=== PATIENT | male | born 1940 | race Caucasian/White ===

== ENCOUNTER 2019-09-27 13:49 | Inpatient (IN) | payer BC, MEDICARE, OTHER ==
[~2019-09-27] VITALS: Ht 188 cm; Wt 72.6 kg
--- NOTE | 2019-09-27 14:08 | NUR ---
PT IS A/OX4, PRESENTS TO THE ER C/O RUE PAIN. PT STATES HE HAD A GROUND LEVEL FALL 2 DAYS AGO, DENIES HEAD INJURY/LOC. RUE PAIN IS PROVOKED UPON MOVEMENT/PALPATION, ACHING IN QUALITY, DOES NOT RADIATE, 7/10, CONSTANT. VSS. PT DENIES C/P, SOB, N/V/D, DIZZINESS, HEADACHE.
[2019-09-27] MEDS ORDERED: SULFAMETH/TRIMETH 800/160 MG TABLET PO ONE (14:15)
[2019-09-27] MEDS ORDERED: MORPHINE SULFATE 4 MG/1 ML DISP.SYRIN IM ONE (14:15)
[2019-09-27] MEDS ORDERED: ONDANSETRON 4 MG/2 ML VIAL IM ONE (14:15)
[2019-09-27] MEDS ORDERED: SULFAMETH/TRIMETH 800/160 MG TABLET ONE (14:15)
[2019-09-27] MEDS ORDERED: NEOMY/BACITRA/POLYMYXIN B OINT UD PACKET TP ONE ×3 (14:15→15:30)
[2019-09-27] MEDS ORDERED: MORPHINE SULFATE 4 MG/1 ML DISP.SYRIN ONE (14:15)
[2019-09-27] MEDS ORDERED: ONDANSETRON 4 MG/2 ML VIAL ONE (14:15)
[2019-09-27 15:00] LABS: BASOPHILS # (AUTO) 0.1 K/uL (0.0-8.0); BASOPHILS % (AUTO) 0.6 % (0.0-2.0); EOSINOPHILS # (AUTO) 0.1 K/uL (0.0-0.7); EOSINOPHILS % (AUTO) 0.4 % (0.0-7.0); HEMATOCRIT 37.4 % (36.7-47.1); HEMOGLOBIN 12.5 g/dL (12.5-16.3); LYMPHOCYTES # (AUTO) 1.2 K/uL (20.0-40.0); LYMPHOCYTES % (AUTO) 8.3 % (20.5-51.5); MEAN CORPUSCULAR HEMOGLOBIN 32.5 uug (23.8-33.4); MEAN CORPUSCULAR HGB CONC 33 g/dL (32.5-36.3); MEAN CORPUSCULAR VOLUME 97.3 fL (73.0-96.2); MONOCYTES % (AUTO) 7.4 % (0.0-11.0); NEUTROPHILS # (AUTO) 11.6 K/uL (1.8-8.9); NEUTROPHILS % (AUTO) 83.3 % (38.5-71.5); PLATELET COUNT (AUTO) 179 K/uL (152-348); RED BLOOD CELL COUNT(AUTO) 3.84 MIL/uL (4.06-5.63)
[2019-09-27 15:09] LABS: CREATININE 0.9 mg/dL (0.6-1.3); POTASSIUM 4.1 mmol/L (3.5-5.1)
[2019-09-27 15:15] LABS: BILIRUBIN,DIRECT 0.2 mg/dL (0.0-0.2); TOTAL PROTEIN, SERUM 6.3 g/dL (6.4-8.2)
[2019-09-27 15:18] LABS: BAND % (MANUAL) 4 % (0-10); LYMPHOCYTES % (MANUAL) 10 % (20-40); MONOCYTES % (MANUAL) 6 % (2-10); NEUTROPHILS % (MANUAL) 80 % (42-75)
--- NOTE | 2019-09-27 16:38 | NUR ---
ADMITTING REPORT GIVEN TO ROSY NAVARRO.
--- NOTE | 2019-09-27 17:00 | NUR ---
PT TRANSFERED TO FLOOR INSTABLE CONDITION. PT FOOD TRAY WAS SENT WITH PT. PT REMAINED CALM AND COMFORTABLE THE WHOLE ER STAY.
--- NOTE | 2019-09-27 19:00 | NUR ---
Pt. resting in bed. Pt. denies pain/ discomfort. IV in L forearm 20 gauge intact patent saline lock. Safety measures in place. call light within reach. Asked Dr. Holt for admitting orders. No new orders yet. Will endorse to PM nurse
[2019-09-27] MEDS ORDERED: ONDANSETRON 4 MG/2 ML VIAL IV PRN (19:45)
[2019-09-27] MEDS ORDERED: Z GUARD REMEDY PASTE 57 GM TUBE TOP PRN (19:45)
[2019-09-27] MEDS ORDERED: MAGNESIUM HYDROXIDE 30 ML LIQUID UDC PO PRN (19:45)
[2019-09-27] MEDS ORDERED: ACETAMINOPHEN 325 MG TABLET PO PRN (19:45)
[2019-09-27 20:00] VITALS: BP 120/59
--- NOTE | 2019-09-27 20:00 | NUR ---
Patient received into care, laying in bed, watching television. Patient is alert/oriented x3 and has no complaints of pain or discomfort at this time. Right arm is secured in sling. All safety and fall precaution measures are in place. Call light and personal items are within reach at all times. Will continue to monitor and assess.
[2019-09-27] MEDS: IV D5 1/2 NS 1000 ML 1,000 ML IV PRN (21:26)
[2019-09-27] MEDS: HYDROCODONE/APAP 5-325MG TABLET PO PRN (21:28)
[2019-09-28] MEDS: ZOLPIDEM 5 MG TABLET PO PRN (00:13)
[2019-09-28] MEDS: MORPHINE SULFATE 4 MG/1 ML DISP.SYRIN IV PRN ×3 (01:31→20:24)
[2019-09-28 04:00] VITALS: BP 157/75
--- NOTE | 2019-09-28 06:00 | NUR ---
Patient slept throughout night with complaints of pain addressed with prescribed analgesics. All nursing needs met promptly and patient is warm, dry, and comfortable. Safety and fall precaution measures remain in place. Call light and personal items remain within reach at all times.
[2019-09-28 06:09] LABS: BASOPHILS % (AUTO) 0.3 % (0.0-2.0); EOSINOPHILS # (AUTO) 0.1 K/uL (0.0-0.7); EOSINOPHILS % (AUTO) 1.3 % (0.0-7.0); HEMATOCRIT 36.6 % (36.7-47.1); HEMOGLOBIN 12.5 g/dL (12.5-16.3); LYMPHOCYTES # (AUTO) 1.2 K/uL (20.0-40.0); LYMPHOCYTES % (AUTO) 11.8 % (20.5-51.5); MEAN CORPUSCULAR HGB CONC 34 g/dL (32.5-36.3); MEAN CORPUSCULAR VOLUME 96.7 fL (73.0-96.2); MONOCYTES % (AUTO) 9.7 % (0.0-11.0); NEUTROPHILS # (AUTO) 7.6 K/uL (1.8-8.9); NEUTROPHILS % (AUTO) 76.9 % (38.5-71.5); PLATELET COUNT (AUTO) 179 K/uL (152-348); RED BLOOD CELL COUNT(AUTO) 3.79 MIL/uL (4.06-5.63); WHITE BLOOD COUNT (AUTO) 9.9 K/uL (3.6-10.2)
[2019-09-28 06:22] LABS: CREATININE 0.9 mg/dL (0.6-1.3); MAGNESIUM 2.2 mg/dL (1.8-2.4); PHOSPHOROUS 3.1 mg/dL (2.5-4.9); POTASSIUM 3.9 mmol/L (3.5-5.1)
[2019-09-28 06:30] LABS: THYROID STIMULATING HORMONE 1.274 mIU/mL (0.358-3.740)
[2019-09-28] MEDS: PANTOPRAZOLE SODIUM 40 MG TABLET.DR PO SCH (06:39)
[2019-09-28] MEDS: IV D5 1/2 NS 1000 ML 1,000 ML IV PRN (10:14)
[2019-09-28 11:18] VITALS: BP 155/80
--- NOTE | 2019-09-28 13:48 | NUR ---
WOUND CARE CONSULT: PT PRESENTS WITH RT UPPER EXTREMITY IN SLING WITH DRESSING IN PLACE. PER POWDER CUTTING OPERATOR, DRESSING NOT TO BE REMOVED TIL PT SEEN BY ORTHO SURGEON. PT IS CONTINENT AND INDEPENDENT WITH BED MOBILITY. WILL SEE PRN.
[2019-09-28] MEDS: HYDROCODONE/APAP 5-325MG TABLET PO PRN (15:27)
[2019-09-28 16:19] VITALS: BP 156/89
--- NOTE | 2019-09-28 19:30 | NUR ---
Received patient awake and alert in bed. Patient is AOx3. No signs of acute distress noted. Complains of pain to the right arm. No SOB. IVF running on the left forearm. Patient noted with multiple bruises to BUE s/p fall. Sling to the right arm is intact. Patient also has dressing intact, noted with skin tears to the right upper arm with bleeding and morning nurse stated another skin tear on the forearm, nurse just changed dressing, will change again in AM. Safety measures initiated. Bed is low and locked, call light within reach. Will continue to monitor.
[2019-09-28 20:08] VITALS: BP 142/79
[2019-09-29] MEDS: IV D5 1/2 NS 1000 ML 1,000 ML IV PRN ×3 (03:30→15:32)
[2019-09-29 05:19] VITALS: BP 147/93
[2019-09-29 05:58] LABS: BASOPHILS % (AUTO) 0.4 % (0.0-2.0); EOSINOPHILS # (AUTO) 0.1 K/uL (0.0-0.7); EOSINOPHILS % (AUTO) 0.9 % (0.0-7.0); HEMATOCRIT 36.3 % (36.7-47.1); HEMOGLOBIN 12.3 g/dL (12.5-16.3); LYMPHOCYTES # (AUTO) 0.8 K/uL (20.0-40.0); LYMPHOCYTES % (AUTO) 7.2 % (20.5-51.5); MEAN CORPUSCULAR HEMOGLOBIN 32.8 uug (23.8-33.4); MEAN CORPUSCULAR HGB CONC 34 g/dL (32.5-36.3); MEAN CORPUSCULAR VOLUME 96.8 fL (73.0-96.2); MONOCYTES # (AUTO) 1.1 K/uL (2.0-10.0); MONOCYTES % (AUTO) 10.7 % (0.0-11.0); NEUTROPHILS # (AUTO) 8.7 K/uL (1.8-8.9); NEUTROPHILS % (AUTO) 80.8 % (38.5-71.5); PLATELET COUNT (AUTO) 199 K/uL (152-348); RED BLOOD CELL COUNT(AUTO) 3.75 MIL/uL (4.06-5.63); WHITE BLOOD COUNT (AUTO) 10.8 K/uL (3.6-10.2)
[2019-09-29] MEDS: PANTOPRAZOLE SODIUM 40 MG TABLET.DR PO SCH (06:13)
[2019-09-29] MEDS: MORPHINE SULFATE 4 MG/1 ML DISP.SYRIN IV PRN ×2 (06:17→17:07)
[2019-09-29 06:19] LABS: CREATININE 0.8 mg/dL (0.6-1.3); MAGNESIUM 1.7 mg/dL (1.8-2.4); PHOSPHOROUS 2.9 mg/dL (2.5-4.9); POTASSIUM 3.8 mmol/L (3.5-5.1)
--- NOTE | 2019-09-29 07:01 | NUR ---
Patient slept well throughout shift, morphine given x2. Dressing to the right arm was changed. Sling is intact. IVF running on the left forearm, no s/s of infection or infiltration noted. All needs met. Safety measures given. Will endorse to next shift
[2019-09-29 11:22] VITALS: BP 141/73
[2019-09-29] MEDS: HYDROCODONE/APAP 5-325MG TABLET PO PRN ×2 (11:32→23:04)
[2019-09-29 15:11] VITALS: BP 147/73
[2019-09-29] MEDS: MAGNESIUM SULFATE/D5W 100 ML IV SCH ×2 (15:32→16:41)
--- NOTE | 2019-09-29 19:30 | NUR ---
Received patient awake and alert in bed, no signs of acute distress noted. Daughter is at bedside. Sling and dressing to the right upper arm is intact. IVF running on the left forearm, no s/s of infection or infiltration noted. Safety measures initiated. Bed is low and locked, call light within reach. Will continue to monitor.
[2019-09-29 20:16] VITALS: BP 155/78
[2019-09-29] MEDS: ZOLPIDEM 5 MG TABLET PO PRN (22:15)
[2019-09-30 05:26] VITALS: BP 149/88
[2019-09-30] MEDS: PANTOPRAZOLE SODIUM 40 MG TABLET.DR PO SCH ×2 (06:09→08:38)
[2019-09-30 06:49] LABS: BASOPHILS % (AUTO) 0.4 % (0.0-2.0); EOSINOPHILS # (AUTO) 0.1 K/uL (0.0-0.7); EOSINOPHILS % (AUTO) 0.7 % (0.0-7.0); HEMATOCRIT 35.8 % (36.7-47.1); HEMOGLOBIN 11.9 g/dL (12.5-16.3); LYMPHOCYTES # (AUTO) 0.9 K/uL (20.0-40.0); LYMPHOCYTES % (AUTO) 8.8 % (20.5-51.5); MEAN CORPUSCULAR HEMOGLOBIN 32.6 uug (23.8-33.4); MEAN CORPUSCULAR HGB CONC 33 g/dL (32.5-36.3); MONOCYTES # (AUTO) 1.2 K/uL (2.0-10.0); MONOCYTES % (AUTO) 11.2 % (0.0-11.0); NEUTROPHILS # (AUTO) 8.4 K/uL (1.8-8.9); NEUTROPHILS % (AUTO) 78.9 % (38.5-71.5); PLATELET COUNT (AUTO) 202 K/uL (152-348); RED BLOOD CELL COUNT(AUTO) 3.66 MIL/uL (4.06-5.63); WHITE BLOOD COUNT (AUTO) 10.6 K/uL (3.6-10.2)
--- NOTE | 2019-09-30 06:50 | NUR ---
Patient slept well throughout the night, pain medication given x2. Dressing change done, slight bleeding noted. Will follow up with Dr. Holt about med recon.
[2019-09-30] MEDS: HYDROCODONE/APAP 5-325MG TABLET PO PRN ×2 (06:53→20:53)
[2019-09-30 07:03] LABS: CREATININE 0.6 mg/dL (0.6-1.3); MAGNESIUM 2.2 mg/dL (1.8-2.4); PHOSPHOROUS 3.4 mg/dL (2.5-4.9); POTASSIUM 3.8 mmol/L (3.5-5.1)
[2019-09-30 08:21] LABS: *BILIRUBIN,URIN NEGATIVE (NEGATIVE); *BLOOD, URINE NEGATIVE (NEGATIVE); *CLARITY,URINE CLEAR (CLEAR); *COLOR,URINE LIGHT YELLOW (YELLOW); *KETONES,URINE NEGATIVE (NEGATIVE); LEUKOCYTE ESTERASE ,URINE NEGATIVE (NEGATIVE); NITRITE, URINE NEGATIVE (NEGATIVE); PH,URINE 5.5 (5.0-8.0); UGLUCOSE NEGATIVE (NEGATIVE)
[2019-09-30 08:36] LABS: BACTERIA,URINE NONE SEEN /HPF (NONE SEEN); RBC,URINE 0-3 /HPF (0-3); SQUAMOUS EPITHELIAL CELL,UR FEW /HPF (NONE SEEN); WBC,URINE 0-3 /HPF (0-3)
[2019-09-30] MEDS: IV D5 1/2 NS 1000 ML 1,000 ML IV PRN ×2 (08:39→23:10)
[2019-09-30] MEDS: MORPHINE SULFATE 4 MG/1 ML DISP.SYRIN IV PRN ×2 (09:07→15:38)
--- NOTE | 2019-09-30 09:35 | NUR ---
alert, oriented, a bit of [place]. When first met this am, said NORCO given at 0700 by previous night nurse, relieved pain. When assisted with adl, now claimed " so much in pain, want some med through the iv, worked better. MSO4 4mg ivp given and ice pad on right arm applied per patient's request.
[2019-09-30] MEDS: CLONAZEPAM 0.5 MG TABLET PO PRN (10:32)
[2019-09-30] MEDS: CARVEDILOL 6.25 MG TABLET PO SCH ×2 (10:32→20:53)
[2019-09-30] MEDS: RAMIPRIL 5 MG CAPSULE PO SCH (10:41)
[2019-09-30 11:18] VITALS: BP 140/71
[2019-09-30] MEDS: FLUOXETINE HCL 20 MG CAPSULE PO SCH (11:36)
--- NOTE | 2019-09-30 15:47 | NUR ---
first mso4 4mg ivp given at about 0900 this morning, asleep for a good 3-4 hrs, woke up only to eat. again requested another dose of mso4, 4mg ivp , given, pain scaled 7/10, patient alert, oriented, and very appropriate.. will continue to monitor his pain, if possible, will medicate in between with norco to relieve the discomfor on right arm
[2019-09-30 15:49] VITALS: BP 141/72
[2019-09-30] MEDS: TRELEGY ELLIPTA INHALER IH SCH (17:59)
--- NOTE | 2019-09-30 18:56 | NUR ---
Report given from fellow nurse around 17:20 ; patient requesting at home medication telergy due to sob and hx of copd yet with a saturation 96% ; patient daughter expressed medication in pharmacy down stares ; ordered for pharmacy to dose medication ; pharmacy ordered and placed in emr. Patient otherwise comfortable and no signs of distress and stable vital signs. Report given to oncoming nurse.
[2019-09-30 20:39] VITALS: BP 134/77
[2019-09-30] MEDS: ROSUVASTATIN 10MG PO SCH (20:52)
[2019-09-30] MEDS ORDERED: ATORVASTATIN 20 MG TABLET PO SCH (21:00)
[2019-09-30] MEDS ORDERED: Medication Not On Formulary EA (Rosuvastatin Calcium (Crestor) 10 MG) PO SCH (21:00)
[2019-09-30] MEDS: ZOLPIDEM 5 MG TABLET PO PRN (23:10)
[2019-10-01 05:44] VITALS: BP 155/68
--- NOTE | 2019-10-01 05:44 | NUR ---
Patient slept well. No SOB noted. No complaints of pain at this time. Sling on R arm kept in place. IV access on LFA intact and patent w/ IVF infusing. All needs attended. Will endorse accordingly
[2019-10-01 06:29] LABS: CREATININE 0.7 mg/dL (0.6-1.3); MAGNESIUM 1.6 mg/dL (1.8-2.4); PHOSPHOROUS 2.8 mg/dL (2.5-4.9); POTASSIUM 3.8 mmol/L (3.5-5.1)
[2019-10-01 06:46] LABS: BASOPHILS % (AUTO) 0.3 % (0.0-2.0); EOSINOPHILS # (AUTO) 0.1 K/uL (0.0-0.7); HEMATOCRIT 33.4 % (36.7-47.1); HEMOGLOBIN 11.1 g/dL (12.5-16.3); LYMPHOCYTES # (AUTO) 0.6 K/uL (20.0-40.0); LYMPHOCYTES % (AUTO) 6.5 % (20.5-51.5); MEAN CORPUSCULAR HEMOGLOBIN 32.5 uug (23.8-33.4); MEAN CORPUSCULAR HGB CONC 33 g/dL (32.5-36.3); MONOCYTES # (AUTO) 0.6 K/uL (2.0-10.0); MONOCYTES % (AUTO) 6.6 % (0.0-11.0); NEUTROPHILS # (AUTO) 7.7 K/uL (1.8-8.9); NEUTROPHILS % (AUTO) 85.6 % (38.5-71.5); PLATELET COUNT (AUTO) 199 K/uL (152-348); RED BLOOD CELL COUNT(AUTO) 3.41 MIL/uL (4.06-5.63)
--- NOTE | 2019-10-01 07:30 | NUR ---
Patient calm and comfortable upon assessment patient with no signs of distress; patient will continue to be monitored.
[2019-10-01] MEDS ORDERED: FLUOXETINE HCL 20 MG CAPSULE PO SCH (09:00)
[2019-10-01] MEDS ORDERED: predniSONE 20 MG TABLET PO SCH (09:00)
[2019-10-01] MEDS ORDERED: METHOTREXATE SODIUM 2.5 MG TABLET PO SCH (09:00)
[2019-10-01] MEDS ORDERED: FOLIC ACID 0.4 MG TABLET PO SCH (09:00)
[2019-10-01] MEDS: predniSONE 10 MG TABLET PO SCH (09:18)
[2019-10-01] MEDS: FLUOXETINE HCL 20 MG CAPSULE PO SCH (09:19)
[2019-10-01] MEDS: FOLIC ACID 1 MG TABLET PO SCH (09:19)
[2019-10-01] MEDS: CARVEDILOL 6.25 MG TABLET PO SCH ×2 (09:21→20:14)
[2019-10-01] MEDS: TRELEGY ELLIPTA INHALER IH SCH (09:22)
[2019-10-01] MEDS: RAMIPRIL 5 MG CAPSULE PO SCH (09:22)
[2019-10-01] MEDS: MAGNESIUM SULFATE/D5W 100 ML IV SCH ×2 (11:42→13:09)
[2019-10-01] MEDS: HYDROCODONE/APAP 5-325MG TABLET PO PRN ×2 (12:32→20:15)
[2019-10-01 13:23] VITALS: BP 111/67
[2019-10-01] MEDS: MORPHINE SULFATE 4 MG/1 ML DISP.SYRIN IV PRN (18:33)
[2019-10-01] MEDS: IV D5 1/2 NS 1000 ML 1,000 ML IV PRN (18:34)
--- NOTE | 2019-10-01 19:03 | NUR ---
Patient calm and comfortable through out shift with no signs of distress; patient medication compliant ; patient had bm today ; patient requested prn medication during shift; wound dressing changed.
--- NOTE | 2019-10-01 20:00 | NUR ---
RECEIVED PATIENT AWAKE IN BED. A/O X4. VERY PLEASANT WHEN APPROACHED. VSS. IVF INFUSING WELL TO LEFT FA #20 GAUGE. RIGHT ARM NOTED IN SLING. ICE APPLIED FOR COMFORT. NO RESP. DISTRESS NOTED. BED ALARM ON. CALL LIGHT IN REACH. ALL NEEDS ATTENDED. WILL CONTINUE TO MONITOR AND ASSESS.
[2019-10-01 20:10] VITALS: BP 127/74
[2019-10-01] MEDS: ROSUVASTATIN 10MG PO SCH (20:15)
[2019-10-01] MEDS: ZOLPIDEM 5 MG TABLET PO PRN (23:56)
[2019-10-02] MEDS: CLONAZEPAM 0.5 MG TABLET PO PRN (01:15)
[2019-10-02] MEDS: HYDROCODONE/APAP 5-325MG TABLET PO PRN ×3 (01:24→20:17)
[2019-10-02 04:33] VITALS: BP 134/79
[2019-10-02] MEDS: PANTOPRAZOLE SODIUM 40 MG TABLET.DR PO SCH (06:26)
--- NOTE | 2019-10-02 06:51 | NUR ---
PATIENT ASLEEP IN BED. DRESSING NOTED TO RIGHT ARM, LEAKING. DRESSING CHANGE 2X. PATIENT ASLEEP,EASILY AROUSABLE, BUT DOES NOT WANT DRESSING CHANGED AT THIS TIME. WILL ENDORSE TO AM SHIFT. VSS. SLEPT AT SMALL INTERVALS. IVF INFUSING WELL ORDERED. BED ALARM ON. RIGHT ARM ELEVATED ON PILLOW. ALL NEEDS ATTENDED. WILL CONTINUE TO MONITOR AND ASSESS.
--- NOTE | 2019-10-02 07:30 | NUR ---
Patient calm and comfortable with no signs of distress; patient will continue to be monitored through out shift.
[2019-10-02] MEDS: predniSONE 10 MG TABLET PO SCH (09:04)
[2019-10-02] MEDS: FOLIC ACID 1 MG TABLET PO SCH (09:04)
[2019-10-02] MEDS: FLUOXETINE HCL 20 MG CAPSULE PO SCH (09:04)
[2019-10-02] MEDS: RAMIPRIL 5 MG CAPSULE PO SCH (09:06)
[2019-10-02] MEDS: TRELEGY ELLIPTA INHALER IH SCH (09:07)
[2019-10-02] MEDS: CARVEDILOL 6.25 MG TABLET PO SCH ×2 (09:07→20:30)
[2019-10-02] MEDS: IV D5 1/2 NS 1000 ML 1,000 ML IV PRN (12:01)
[2019-10-02] MEDS ORDERED: hydrALAZINE HCL 25 MG TABLET PO PRN (12:30)
[2019-10-02 13:41] VITALS: BP 123/66
[2019-10-02 15:48] LABS: BASOPHILS % (AUTO) 0.5 % (0.0-2.0); EOSINOPHILS % (AUTO) 0.1 % (0.0-7.0); HEMATOCRIT 34.8 % (36.7-47.1); HEMOGLOBIN 11.5 g/dL (12.5-16.3); LYMPHOCYTES # (AUTO) 0.4 K/uL (20.0-40.0); LYMPHOCYTES % (AUTO) 4.5 % (20.5-51.5); MEAN CORPUSCULAR HEMOGLOBIN 32.2 uug (23.8-33.4); MEAN CORPUSCULAR HGB CONC 33 g/dL (32.5-36.3); MEAN CORPUSCULAR VOLUME 97.3 fL (73.0-96.2); MONOCYTES # (AUTO) 0.5 K/uL (2.0-10.0); NEUTROPHILS # (AUTO) 8.3 K/uL (1.8-8.9); NEUTROPHILS % (AUTO) 89.9 % (38.5-71.5); PLATELET COUNT (AUTO) 268 K/uL (152-348); RED BLOOD CELL COUNT(AUTO) 3.58 MIL/uL (4.06-5.63); WHITE BLOOD COUNT (AUTO) 9.2 K/uL (3.6-10.2)
[2019-10-02 16:03] VITALS: BP 112/62
[2019-10-02 16:08] LABS: BILIRUBIN,TOTAL 0.7 mg/dL (0.2-1.0); CREATININE 0.8 mg/dL (0.6-1.3); TOTAL PROTEIN, SERUM 6.1 g/dL (6.4-8.2)
[2019-10-02 16:15] LABS: POTASSIUM 4.8 mmol/L (3.5-5.1)
--- NOTE | 2019-10-02 19:05 | NUR ---
Patient calm and comfortable through out shift ;patient with no signs of distress; patient suppose to be discharged but decided he wants a second opinion for right arm fracture ;attending agreed. patient with stable vital signs. Report given to oncoming nurse.
[2019-10-02 20:00] VITALS: BP 141/82
--- NOTE | 2019-10-02 20:00 | NUR ---
Patient received into care, sitting up in bed, resting comfortably. Patient is alert/oriented x3 and is requesting pain medication. Personal items and call light are within reach. Safety and fall precaution measures are in place. Well continue to monitor and assess.
[2019-10-02] MEDS: MORPHINE SULFATE 4 MG/1 ML DISP.SYRIN IV PRN (20:08)
[2019-10-02] MEDS: ROSUVASTATIN 10MG PO SCH (20:38)
[2019-10-02] MEDS: ZOLPIDEM 5 MG TABLET PO PRN (23:04)
[2019-10-03] MEDS: IV D5 1/2 NS 1000 ML 1,000 ML IV PRN ×2 (04:19→17:54)
[2019-10-03 05:03] VITALS: BP 126/52
[2019-10-03] MEDS: MORPHINE SULFATE 4 MG/1 ML DISP.SYRIN IV PRN (05:23)
[2019-10-03] MEDS: PANTOPRAZOLE SODIUM 40 MG TABLET.DR PO SCH (06:00)
--- NOTE | 2019-10-03 06:00 | NUR ---
Patient slept intermittently throughout night with complaints of pain addressed with prescribed analgesics. All prescribed medications provided as ordered and tolerated well, with no adverse side effects verbalized by patient or noted/observed by nurse. Wound care for right arm was performed. All nursing care met promptly and patient is warm, dry and comfortable. All safety and fall precaution measures remain in place. Call light and personal items are within reach at all times.
--- NOTE | 2019-10-03 08:00 | NUR ---
Received pt. resting in bed alert oriented x4. Pt. is on 2 L NC. IV in L forearm 20 guage intact patent running prescribed fluids. Pt. has R shoulder sling. Spoke to and arranging 2nd ortho to evaluate pt. for 2nd opinion. Spoke to daughter and updated her on plan of care.
[2019-10-03] MEDS: FLUOXETINE HCL 20 MG CAPSULE PO SCH (10:16)
[2019-10-03] MEDS: predniSONE 10 MG TABLET PO SCH (10:16)
[2019-10-03] MEDS: CARVEDILOL 6.25 MG TABLET PO SCH ×2 (10:16→21:57)
[2019-10-03] MEDS: FOLIC ACID 1 MG TABLET PO SCH (10:16)
[2019-10-03] MEDS: RAMIPRIL 5 MG CAPSULE PO SCH (10:17)
[2019-10-03] MEDS: HYDROCODONE/APAP 5-325MG TABLET PO PRN ×2 (10:26→14:45)
[2019-10-03] MEDS: TRELEGY ELLIPTA INHALER IH SCH (10:26)
[2019-10-03 11:23] VITALS: BP 126/70
[2019-10-03 15:55] VITALS: BP 120/70
--- NOTE | 2019-10-03 20:00 | NUR ---
PATIENT RECEIVED INTO CARE, SITTING UP IN BED, RESTING COMFORTABLY. PATIENT HAS NO COMPLAINTS OF PAIN OR DISCOMFORT AT THIS TIME. SAFETY AND FALL PRECAUTION MEASURES ARE IN PLACE. CALL LIGHT AND PERSONAL ITEMS ARE WITHIN REACH. WILL CONTINUE TO MONITOR AND ASSESS.
[2019-10-03 20:58] VITALS: BP 141/66
[2019-10-03] MEDS: ROSUVASTATIN 10MG PO SCH (21:52)
[2019-10-04 04:10] VITALS: BP 158/87
[2019-10-04] MEDS: MORPHINE SULFATE 4 MG/1 ML DISP.SYRIN IV PRN (05:00)
--- NOTE | 2019-10-04 05:00 | NUR ---
IV in left forearm infiltrated. IV cath removed, ice applied to infiltrated site. New IV site placed in left AC 20g. IV site patent and intact, IV fluids resumed.
[2019-10-04] MEDS: IV D5 1/2 NS 1000 ML 1,000 ML IV PRN (05:04)
--- NOTE | 2019-10-04 05:45 | NUR ---
New IV site reddened and edematous. IV cath removed from left AC, extremity elevated and ice applied. No new site started. Will endorse to AM shift.
[2019-10-04] MEDS: HYDROCODONE/APAP 5-325MG TABLET PO PRN ×3 (06:15→20:44)
[2019-10-04] MEDS: PANTOPRAZOLE SODIUM 40 MG TABLET.DR PO SCH (06:15)
--- NOTE | 2019-10-04 07:53 | NUR ---
Received pt. resting in bed alert oriented x4. Pt. is on 2 L NC. Pt. does not have an IV due to IV infiltrating last night. RN attempted twice to put in new IV without success. Pt. refuses IV at this time and wants to rest. Pt. has R shoulder sling. Awaiting 2nd recommendation from ortho surgeon. Safety measures in place. Call light within reach. Will continue to monitor pt.
[2019-10-04] MEDS: predniSONE 10 MG TABLET PO SCH (07:56)
[2019-10-04] MEDS: FLUOXETINE HCL 20 MG CAPSULE PO SCH (07:56)
[2019-10-04] MEDS: FOLIC ACID 1 MG TABLET PO SCH (07:56)
[2019-10-04] MEDS: CARVEDILOL 6.25 MG TABLET PO SCH ×2 (07:57→20:42)
[2019-10-04] MEDS: TRELEGY ELLIPTA INHALER IH SCH (07:57)
[2019-10-04] MEDS: RAMIPRIL 5 MG CAPSULE PO SCH (07:57)
[2019-10-04 11:00] VITALS: BP 109/55
[2019-10-04 15:00] VITALS: BP 127/61
--- NOTE | 2019-10-04 19:05 | NUR ---
aware of no IV site. No new orders. Pt. compliant with plan of care. PRN pain medication provided for pain
[2019-10-04 20:00] VITALS: BP 123/72
--- NOTE | 2019-10-04 20:00 | NUR ---
Patient received into care, sitting up in bed, watching television. Patient is alert/oriented x3 and is requesting pain medication related to right humeral fracture. Nurse asked patient if he would like prescribed norco and patient said yes. Safety and fall precaution measures are in place. Call light and personal items are within reach. Will continue to monitor and assess.
[2019-10-04] MEDS: ROSUVASTATIN 10MG PO SCH (21:28)
[2019-10-05 04:00] VITALS: BP 144/80
--- NOTE | 2019-10-05 06:00 | NUR ---
Patient slept comfortably throughout night with complaints of pain addressed with prescribed analgesics. All prescribed medications provided as ordered and tolerated well, with no adverse side effects verbalized by patient or noted/observed by nurse. Call light remains within reach at all times. Safety and fall precaution measures remain in place.
[2019-10-05] MEDS: PANTOPRAZOLE SODIUM 40 MG TABLET.DR PO SCH (06:05)
[2019-10-05] MEDS: HYDROCODONE/APAP 5-325MG TABLET PO PRN ×3 (06:05→22:46)
[2019-10-05 06:35] LABS: BASOPHILS % (AUTO) 0.4 % (0.0-2.0); EOSINOPHILS # (AUTO) 0.1 K/uL (0.0-0.7); EOSINOPHILS % (AUTO) 0.7 % (0.0-7.0); HEMATOCRIT 35.8 % (36.7-47.1); HEMOGLOBIN 11.7 g/dL (12.5-16.3); LYMPHOCYTES # (AUTO) 1.3 K/uL (20.0-40.0); LYMPHOCYTES % (AUTO) 13.9 % (20.5-51.5); MEAN CORPUSCULAR HEMOGLOBIN 31.9 uug (23.8-33.4); MEAN CORPUSCULAR HGB CONC 33 g/dL (32.5-36.3); MEAN CORPUSCULAR VOLUME 97.5 fL (73.0-96.2); MONOCYTES # (AUTO) 1.1 K/uL (2.0-10.0); MONOCYTES % (AUTO) 11.9 % (0.0-11.0); NEUTROPHILS # (AUTO) 6.8 K/uL (1.8-8.9); NEUTROPHILS % (AUTO) 73.1 % (38.5-71.5); PLATELET COUNT (AUTO) 297 K/uL (152-348); RED BLOOD CELL COUNT(AUTO) 3.67 MIL/uL (4.06-5.63); WHITE BLOOD COUNT (AUTO) 9.3 K/uL (3.6-10.2)
[2019-10-05 06:57] LABS: BILIRUBIN,TOTAL 0.5 mg/dL (0.2-1.0); CREATININE 0.7 mg/dL (0.6-1.3); PHOSPHOROUS 3.9 mg/dL (2.5-4.9); TOTAL PROTEIN, SERUM 6.4 g/dL (6.4-8.2)
[2019-10-05] MEDS: FLUOXETINE HCL 20 MG CAPSULE PO SCH (08:10)
[2019-10-05] MEDS: FOLIC ACID 1 MG TABLET PO SCH (08:11)
[2019-10-05] MEDS: RAMIPRIL 5 MG CAPSULE PO SCH (08:11)
[2019-10-05] MEDS: predniSONE 10 MG TABLET PO SCH (08:11)
[2019-10-05] MEDS: CARVEDILOL 6.25 MG TABLET PO SCH ×2 (08:11→20:12)
[2019-10-05] MEDS: TRELEGY ELLIPTA INHALER IH SCH (08:17)
[2019-10-05 11:10] VITALS: BP 117/74
[2019-10-05 15:30] VITALS: BP 122/74
[2019-10-05] MEDS: MORPHINE SULFATE 4 MG/1 ML DISP.SYRIN IV PRN (17:04)
[2019-10-05] MEDS: ROSUVASTATIN 10MG PO SCH (20:16)
[2019-10-05 20:34] VITALS: BP 149/80
[2019-10-06] MEDS: MORPHINE SULFATE 4 MG/1 ML DISP.SYRIN IM PRN ×2 (03:45→10:17)
[2019-10-06 05:15] VITALS: BP 148/71
[2019-10-06] MEDS: PANTOPRAZOLE SODIUM 40 MG TABLET.DR PO SCH (06:03)
--- NOTE | 2019-10-06 07:20 | NUR ---
RECEIVED PATIENT IN BED, AOX4. DENIES PAIN OR SOB AT THIS TIME. PLAN FOR MIDLINE PLACEMENT. SAFETY AND FALL PREVENTION IN PLACE. CALL LIGHT IN REACH. BED IN LOW POSITION AND LOCKED. WILL REPORT TO FORK LIFT TRUCK OPERATOR. Addendum: 10/06/19 at 1849 by YOSELIN TOMPKINS RN WILL CONTINUE TO MONITOR THROUGHOUT THE SHIFT.
[2019-10-06] MEDS: FOLIC ACID 1 MG TABLET PO SCH (08:52)
[2019-10-06] MEDS: FLUOXETINE HCL 20 MG CAPSULE PO SCH (08:52)
[2019-10-06] MEDS ORDERED: METHOTREXATE SODIUM 2.5 MG TABLET PO SCH (09:00)
[2019-10-06] MEDS: CARVEDILOL 6.25 MG TABLET PO SCH ×2 (09:02→21:33)
[2019-10-06] MEDS: TRELEGY ELLIPTA INHALER IH SCH (09:03)
[2019-10-06] MEDS: predniSONE 10 MG TABLET PO SCH (09:04)
[2019-10-06] MEDS: RAMIPRIL 5 MG CAPSULE PO SCH (09:08)
--- NOTE | 2019-10-06 11:02 | NUR ---
dr. raul Stockton wanted to cancel the vit. B 12 lab for today.
[2019-10-06 11:57] VITALS: BP 111/69
[2019-10-06] MEDS: HYDROCODONE/APAP 5-325MG TABLET PO PRN ×2 (14:54→21:34)
[2019-10-06 16:09] VITALS: BP 121/74
--- NOTE | 2019-10-06 18:49 | NUR ---
PATIENT IN BED, AOX4. COMPLEINS OF RIGHT ARM PAIN, MEDICATIONS GIVEN ORDERED. MIDLINE INTACT AND FLUSHED. SAFETY AND FALL PREVENTION IN PLACE. CALL LIGHT IN REACH. BED IN LOW POSITION AND LOCKED. WILL REPORT TO TOP STEEP TENDER.
[2019-10-06 21:31] VITALS: BP 127/53
[2019-10-06] MEDS: ATORVASTATIN 20 MG TABLET PO SCH (21:33)
[2019-10-06] MEDS: ROSUVASTATIN 10MG PO SCH (21:35)
--- NOTE | 2019-10-07 05:57 | NUR ---
Pt slept well through the night with no issues, gave 1x dose of [place] last night and effective throughout shift.
[2019-10-07] MEDS: PANTOPRAZOLE SODIUM 40 MG TABLET.DR PO SCH (06:29)
[2019-10-07 06:52] LABS: BASOPHILS % (AUTO) 0.4 % (0.0-2.0); EOSINOPHILS # (AUTO) 0.1 K/uL (0.0-0.7); EOSINOPHILS % (AUTO) 0.8 % (0.0-7.0); HEMATOCRIT 35.6 % (36.7-47.1); HEMOGLOBIN 11.9 g/dL (12.5-16.3); LYMPHOCYTES # (AUTO) 1.3 K/uL (20.0-40.0); LYMPHOCYTES % (AUTO) 11.9 % (20.5-51.5); MEAN CORPUSCULAR HEMOGLOBIN 32.2 uug (23.8-33.4); MEAN CORPUSCULAR HGB CONC 34 g/dL (32.5-36.3); MEAN CORPUSCULAR VOLUME 96.2 fL (73.0-96.2); MONOCYTES # (AUTO) 1.2 K/uL (2.0-10.0); MONOCYTES % (AUTO) 10.6 % (0.0-11.0); NEUTROPHILS # (AUTO) 8.7 K/uL (1.8-8.9); NEUTROPHILS % (AUTO) 76.3 % (38.5-71.5); PLATELET COUNT (AUTO) 306 K/uL (152-348); WHITE BLOOD COUNT (AUTO) 11.3 K/uL (3.6-10.2)
[2019-10-07 07:06] LABS: CARBON DIOXIDE 31 mmol/L (21-32); CHLORIDE 102 mmol/L (98-107); CREATININE 0.6 mg/dL (0.6-1.3); GLUCOSE 85 mg/dL (74-106); PHOSPHOROUS 4.3 mg/dL (2.5-4.9); POTASSIUM 3.9 mmol/L (3.5-5.1); UREA NITROGEN, BLOOD 17 mg/dL (7-18)
[2019-10-07] MEDS: TRELEGY ELLIPTA INHALER IH SCH (08:06)
[2019-10-07] MEDS: RAMIPRIL 5 MG CAPSULE PO SCH (08:07)
[2019-10-07] MEDS: predniSONE 10 MG TABLET PO SCH (08:07)
[2019-10-07] MEDS: FLUOXETINE HCL 20 MG CAPSULE PO SCH (08:07)
[2019-10-07] MEDS: CARVEDILOL 6.25 MG TABLET PO SCH ×2 (08:07→20:04)
[2019-10-07] MEDS: FOLIC ACID 1 MG TABLET PO SCH (08:07)
[2019-10-07] MEDS: MORPHINE SULFATE 4 MG/1 ML DISP.SYRIN IM PRN ×4 (11:27→23:53)
[2019-10-07 11:47] VITALS: BP 115/64
[2019-10-07 16:03] VITALS: BP 114/50
[2019-10-07] MEDS: HYDROCODONE/APAP 5-325MG TABLET PO PRN (17:32)
[2019-10-07] MEDS: ROSUVASTATIN 10MG PO SCH (20:04)
[2019-10-07] MEDS: ATORVASTATIN 20 MG TABLET PO SCH (20:04)
[2019-10-07 20:20] VITALS: BP 121/79
[2019-10-08] MEDS: MORPHINE SULFATE 4 MG/1 ML DISP.SYRIN IM PRN (04:10)
[2019-10-08 04:59] VITALS: BP 119/56
[2019-10-08] MEDS: PANTOPRAZOLE SODIUM 40 MG TABLET.DR PO SCH (06:08)
[2019-10-08 06:37] LABS: BASOPHILS % (AUTO) 0.4 % (0.0-2.0); EOSINOPHILS # (AUTO) 0.1 K/uL (0.0-0.7); EOSINOPHILS % (AUTO) 0.7 % (0.0-7.0); HEMATOCRIT 35.7 % (36.7-47.1); HEMOGLOBIN 11.8 g/dL (12.5-16.3); LYMPHOCYTES # (AUTO) 1.1 K/uL (20.0-40.0); LYMPHOCYTES % (AUTO) 10.3 % (20.5-51.5); MEAN CORPUSCULAR HGB CONC 33 g/dL (32.5-36.3); MEAN CORPUSCULAR VOLUME 96.8 fL (73.0-96.2); MONOCYTES % (AUTO) 9.7 % (0.0-11.0); NEUTROPHILS # (AUTO) 8.5 K/uL (1.8-8.9); NEUTROPHILS % (AUTO) 78.9 % (38.5-71.5); PLATELET COUNT (AUTO) 313 K/uL (152-348); RED BLOOD CELL COUNT(AUTO) 3.69 MIL/uL (4.06-5.63); WHITE BLOOD COUNT (AUTO) 10.8 K/uL (3.6-10.2)
[2019-10-08 06:53] LABS: CREATININE 0.8 mg/dL (0.6-1.3); MAGNESIUM 1.8 mg/dL (1.8-2.4); PHOSPHOROUS 4.4 mg/dL (2.5-4.9); POTASSIUM 4.1 mmol/L (3.5-5.1)
--- NOTE | 2019-10-08 07:30 | NUR ---
Patient calm and comfortable with no signs of distress upon initial assessment ; patient will continue to be monitored.
[2019-10-08] MEDS: CARVEDILOL 6.25 MG TABLET PO SCH ×2 (08:18→20:24)
[2019-10-08] MEDS: RAMIPRIL 5 MG CAPSULE PO SCH (08:18)
[2019-10-08] MEDS: predniSONE 10 MG TABLET PO SCH (08:19)
[2019-10-08] MEDS: FOLIC ACID 1 MG TABLET PO SCH (08:19)
[2019-10-08] MEDS: FLUOXETINE HCL 20 MG CAPSULE PO SCH (08:19)
[2019-10-08] MEDS: HYDROCODONE/APAP 5-325MG TABLET PO PRN (08:19)
[2019-10-08] MEDS: TRELEGY ELLIPTA INHALER IH SCH (08:22)
[2019-10-08 11:51] VITALS: BP 134/80
[2019-10-08] MEDS: MORPHINE SULFATE 4 MG/1 ML DISP.SYRIN IV PRN ×2 (12:21→18:22)
[2019-10-08 16:20] VITALS: BP 116/67
--- NOTE | 2019-10-08 18:17 | NUR ---
PATIENT CALM AND COMFORTABLE THROUGH OUT SHIFT ; PATIENT SCHEDULED FOR SURGERY TOMORROW MORNING ; PATIENT WITH STABLE VITAL SIGNS THROUGH OUT SHIFT; PATIENT WITH NO SIGNS OF DISTRESS; PATIENT MEDICATION COMPLIANT ; PATIENT GIVEN PRN MEDICATION FOR PAIN.
--- NOTE | 2019-10-08 19:30 | NUR ---
RECEIVED PT AWAKE, ALERT AND ORIENTEDX3. PT IN NO ACUTE DISTRESS. IV INTACT. PT AWARE THAT HE WILL BE ON NPO ON MIDNIGHT, SAFETY AND COMFORT PROVIDED. WILL CONTINUE TO MONITOR.
[2019-10-08 20:00] VITALS: BP 126/65
[2019-10-08] MEDS: ATORVASTATIN 20 MG TABLET PO SCH (20:23)
[2019-10-08] MEDS: ROSUVASTATIN 10MG PO SCH (20:24)
[2019-10-08] MEDS: ZOLPIDEM 5 MG TABLET PO PRN (22:46)
[2019-10-09] MEDS: MORPHINE SULFATE 4 MG/1 ML DISP.SYRIN IV PRN ×4 (01:34→20:15)
[2019-10-09 05:04] VITALS: BP 129/65
[2019-10-09] MEDS: PANTOPRAZOLE SODIUM 40 MG TABLET.DR PO SCH (06:22)
--- NOTE | 2019-10-09 06:25 | NUR ---
PT SLEPT INTERMITTENTLY. PT IN NO ACUTE DISTRESS. IV INTACT. PRESCRIBED MEDICATION GIVEN AND PT TOLERATED IT WELL. PT GIVEN MORPHINE AT 0134H. PT TOLERATED IT WELL. SAFETY AND COMFORT PROVIDED. ALL NEEDS ARE MET. WILL ENDORSE TO INCOMING NURSE FOR CONTINUITY OF CARE.
[2019-10-09] MEDS ORDERED: POLYMYXIN B SULFATE 500,000 UNITS, BACITRACIN 50,000 UNITS, NORMAL SALINE 20 ML MC ONE ×3 (07:15)
--- NOTE | 2019-10-09 07:30 | NUR ---
Patient calm and comfortable with no signs of distress ;patient explained npo status and surgery at 9am; patient will continue to be monitored.
[2019-10-09] MEDS ORDERED: VANCOMYCIN 1000 MG VIAL ONE (07:32)
[2019-10-09] MEDS ORDERED: BACITRACIN ZINC OINT 15 GM TUBE ONE (07:32)
[2019-10-09] MEDS: FLUOXETINE HCL 20 MG CAPSULE PO SCH (08:33)
[2019-10-09] MEDS: FOLIC ACID 1 MG TABLET PO SCH (08:33)
[2019-10-09] MEDS: CARVEDILOL 6.25 MG TABLET PO SCH ×2 (08:34→20:14)
[2019-10-09] MEDS: predniSONE 10 MG TABLET PO SCH (08:34)
[2019-10-09] MEDS: TRELEGY ELLIPTA INHALER IH SCH (08:35)
[2019-10-09] MEDS: RAMIPRIL 5 MG CAPSULE PO SCH ×2 (08:36→20:15)
[2019-10-09] MEDS ORDERED: ROCURONIUM BROMIDE 50 MG/5 ML VIAL ONE (09:31)
[2019-10-09] MEDS ORDERED: HYDROMORPHONE 2 MG/1 ML DISP.SYRIN ONE (09:31)
[2019-10-09] MEDS ORDERED: HYDROCORTISONE SOD SUCCINATE 100 MG/2 ML VIAL IV ONE (10:52)
[2019-10-09] MEDS ORDERED: BUPIVACAINE 0.25% 30 ML VIAL ONE (11:25)
[2019-10-09] MEDS ORDERED: BUPIVACAINE/EPI PF 0.25% 30 ML VIAL ONE (11:25)
[2019-10-09] MEDS ORDERED: ONDANSETRON 4 MG/2 ML VIAL IV ONE (11:40)
[2019-10-09] MEDS ORDERED: EPHEDRINE SULFATE 50 MG/ML AMPUL IM ONE (11:40)
[2019-10-09] MEDS ORDERED: SEVOFLURANE 250 ML BOTTLE IH ONE (11:40)
[2019-10-09] MEDS ORDERED: IV NORMAL SALINE 1000 ML BAG IV ONE ×2 (11:40)
[2019-10-09] MEDS ORDERED: CEFAZOLIN 1 G VIAL IM ONE (11:40)
[2019-10-09] MEDS ORDERED: LIDOCAINE-MPF 2% 5 ML VIAL IJ ONE (11:40)
[2019-10-09] MEDS ORDERED: PROPOFOL 200 MG/20 ML BOTTLE IV ONE (11:40)
[2019-10-09] MEDS ORDERED: DEXAMETHASONE SOD PHOSPHATE 4 MG INJ IV ONE (11:40)
[2019-10-09] MEDS ORDERED: NEOSTIGMINE METHYLSULFATE 10 MG/10 ML VIAL IM ONE (11:40)
[2019-10-09] MEDS ORDERED: GLYCOPYRROLATE 0.2 MG/ML VIAL IJ ONE (11:40)
[2019-10-09] MEDS ORDERED: KETOROLAC TROMETHAMINE 30 MG INJ IM ONE (11:40)
[2019-10-09] MEDS ORDERED: FENTANYL CITRATE 100 MCG/2 ML AMPUL ONE (11:46)
[2019-10-09] MEDS ORDERED: HYDROMORPHONE 1 MG/1 ML DISP.SYRIN ONE (12:35)
--- NOTE | 2019-10-09 13:30 | NUR ---
Patient retuned from surgery in stable condition with stable vital signs. no acute distress.
[2019-10-09 16:00] VITALS: BP 130/66
[2019-10-09 19:50] VITALS: BP 130/69
[2019-10-09] MEDS: ATORVASTATIN 20 MG TABLET PO SCH (20:14)
[2019-10-09] MEDS: ROSUVASTATIN 10MG PO SCH (21:01)
[2019-10-10 04:02] VITALS: BP 142/78
[2019-10-10] MEDS: MORPHINE SULFATE 4 MG/1 ML DISP.SYRIN IV PRN ×3 (05:08→14:48)
--- NOTE | 2019-10-10 05:47 | NUR ---
Patient mildly anxious after surgery expressing he could not get comfortable ; patient given prn pain medication for pain along with educating patient on realistic expiations of healing time post surgery. Patient verbalized understanding ;patient otherwise in stable condition with stable vital signs.
[2019-10-10 06:06] LABS: CREATININE 0.8 mg/dL (0.6-1.3); MAGNESIUM 1.7 mg/dL (1.8-2.4); PHOSPHOROUS 3.9 mg/dL (2.5-4.9); POTASSIUM 4.2 mmol/L (3.5-5.1)
[2019-10-10 06:18] LABS: BASOPHILS % (AUTO) 0.2 % (0.0-2.0); HEMATOCRIT 31.5 % (36.7-47.1); HEMOGLOBIN 10.5 g/dL (12.5-16.3); LYMPHOCYTES # (AUTO) 0.8 K/uL (20.0-40.0); MEAN CORPUSCULAR HGB CONC 33 g/dL (32.5-36.3); MEAN CORPUSCULAR VOLUME 96.1 fL (73.0-96.2); MONOCYTES # (AUTO) 1.7 K/uL (2.0-10.0); MONOCYTES % (AUTO) 8.2 % (0.0-11.0); NEUTROPHILS # (AUTO) 17.9 K/uL (1.8-8.9); NEUTROPHILS % (AUTO) 87.6 % (38.5-71.5); PLATELET COUNT (AUTO) 317 K/uL (152-348); RED BLOOD CELL COUNT(AUTO) 3.27 MIL/uL (4.06-5.63); WHITE BLOOD COUNT (AUTO) 20.4 K/uL (3.6-10.2)
[2019-10-10] MEDS: PANTOPRAZOLE SODIUM 40 MG TABLET.DR PO SCH (06:25)
[2019-10-10] MEDS: FLUOXETINE HCL 20 MG CAPSULE PO SCH (08:21)
[2019-10-10] MEDS: predniSONE 10 MG TABLET PO SCH (08:21)
[2019-10-10] MEDS: FOLIC ACID 1 MG TABLET PO SCH (08:21)
[2019-10-10] MEDS: CLONAZEPAM 0.5 MG TABLET PO PRN (08:22)
[2019-10-10] MEDS: TRELEGY ELLIPTA INHALER IH SCH (08:29)
[2019-10-10] MEDS: RAMIPRIL 5 MG CAPSULE PO SCH (09:21)
[2019-10-10] MEDS: CARVEDILOL 6.25 MG TABLET PO SCH ×2 (09:22→21:22)
[2019-10-10] MEDS ORDERED: MAGNESIUM OXIDE 400 MG TABLET PO ONE (10:00)
[2019-10-10 11:34] VITALS: BP 99/72
[2019-10-10 15:20] VITALS: BP 120/47
--- NOTE | 2019-10-10 18:50 | NUR ---
PATIENT ALERT ORIENTED COOPERATIVE WITH NO SOB, NO S/S OF PAIN AT THIS TIME. WILL CONTINUE TO MONITOR.
--- NOTE | 2019-10-10 20:00 | NUR ---
Received patient laying in bed. A/O x 3. Patient denies pain or SOB. Patient is on a sling on the right arm s/p sx on 10/09/2019. Midline in the left upper arm, patent and intact. Safety initiated. Call light within reach, will continue to monitor.
[2019-10-10] MEDS: ROSUVASTATIN 10MG PO SCH (21:21)
[2019-10-10] MEDS: ATORVASTATIN 20 MG TABLET PO SCH (21:21)
--- NOTE | 2019-10-11 05:28 | NUR ---
No changes t/o shift. Patient slept intermittently t/o shift. No PRN's given. Denies pain or SOB. Safety and comfort measures maintained t/o shift. Vital signs stable. All meds given as ordered. All needs met.
[2019-10-11] MEDS: PANTOPRAZOLE SODIUM 40 MG TABLET.DR PO SCH (06:11)
[2019-10-11] MEDS: HYDROCODONE/APAP 5-325MG TABLET PO PRN ×2 (06:23→20:31)
[2019-10-11 06:38] LABS: CREATININE 0.7 mg/dL (0.6-1.3); MAGNESIUM 1.9 mg/dL (1.8-2.4)
--- NOTE | 2019-10-11 07:30 | NUR ---
Received patient in bed, awake and verbally responsive. No signs of distress noted. No SOB. No complain of Pain or discomfort at this time. Right Arm Sling in placed, kept comfortable. Will continue to monitor.
[2019-10-11] MEDS: FLUOXETINE HCL 20 MG CAPSULE PO SCH (08:13)
[2019-10-11] MEDS: TRELEGY ELLIPTA INHALER IH SCH (08:13)
[2019-10-11] MEDS: predniSONE 10 MG TABLET PO SCH (08:13)
[2019-10-11] MEDS: FOLIC ACID 1 MG TABLET PO SCH (08:13)
[2019-10-11] MEDS: CARVEDILOL 6.25 MG TABLET PO SCH ×2 (09:00→20:31)
[2019-10-11] MEDS: RAMIPRIL 5 MG CAPSULE PO SCH (09:00)
[2019-10-11 12:07] VITALS: BP 128/77
[2019-10-11 15:40] VITALS: BP 117/54
[2019-10-11] MEDS: MORPHINE SULFATE 4 MG/1 ML DISP.SYRIN IV PRN ×2 (16:51→21:43)
--- NOTE | 2019-10-11 18:51 | NUR ---
patient in bed, awake and verbally responsive. No signs of distress noted. No SOB. Pain medication given as ordered. Kept clean and comfortable. Will endorse to Oncoming Nurse.
[2019-10-11 20:00] VITALS: BP 143/79
[2019-10-11] MEDS: ATORVASTATIN 20 MG TABLET PO SCH (20:30)
[2019-10-11] MEDS: ROSUVASTATIN 10MG PO SCH (20:32)
[2019-10-11] MEDS: CLONAZEPAM 0.5 MG TABLET PO PRN (23:33)
[2019-10-12] VITALS: BP 131/74
[2019-10-12] MEDS: MORPHINE SULFATE 4 MG/1 ML DISP.SYRIN IV PRN ×4 (01:18→19:21)
[2019-10-12] MEDS: PANTOPRAZOLE SODIUM 40 MG TABLET.DR PO SCH (06:56)
[2019-10-12 08:52] LABS: BASOPHILS # (AUTO) 0.1 K/uL (0.0-8.0); BASOPHILS % (AUTO) 0.5 % (0.0-2.0); EOSINOPHILS % (AUTO) 0.3 % (0.0-7.0); HEMATOCRIT 31.2 % (36.7-47.1); HEMOGLOBIN 10.6 g/dL (12.5-16.3); LYMPHOCYTES # (AUTO) 0.9 K/uL (20.0-40.0); MEAN CORPUSCULAR HEMOGLOBIN 32.5 uug (23.8-33.4); MEAN CORPUSCULAR HGB CONC 34 g/dL (32.5-36.3); MEAN CORPUSCULAR VOLUME 96.2 fL (73.0-96.2); MONOCYTES # (AUTO) 1.3 K/uL (2.0-10.0); NEUTROPHILS # (AUTO) 8.9 K/uL (1.8-8.9); NEUTROPHILS % (AUTO) 79.2 % (38.5-71.5); PLATELET COUNT (AUTO) 292 K/uL (152-348); RED BLOOD CELL COUNT(AUTO) 3.25 MIL/uL (4.06-5.63); WHITE BLOOD COUNT (AUTO) 11.2 K/uL (3.6-10.2)
[2019-10-12] MEDS: FOLIC ACID 1 MG TABLET PO SCH (08:58)
[2019-10-12] MEDS: FLUOXETINE HCL 20 MG CAPSULE PO SCH (08:58)
[2019-10-12] MEDS: predniSONE 10 MG TABLET PO SCH (08:58)
[2019-10-12] MEDS: CARVEDILOL 6.25 MG TABLET PO SCH (08:58)
[2019-10-12] MEDS: RAMIPRIL 5 MG CAPSULE PO SCH (08:59)
[2019-10-12] MEDS: TRELEGY ELLIPTA INHALER IH SCH (08:59)
--- NOTE | 2019-10-12 09:00 | NUR ---
Patient awake, alert, oriented x 4, not in any form of distress. He denies any pain or discomfort at this time. Assisted with his needs. Call light and frequently used items placed within reach. With arm sling on right arm. Due medications administered and tolerated well.
[2019-10-12 10:01] LABS: EOSINOPHILS % (MANUAL) 2 % (0-8); LYMPHOCYTES % (MANUAL) 15 % (20-40); MONOCYTES % (MANUAL) 6 % (2-10); NEUTROPHILS % (MANUAL) 77 % (42-75)
[2019-10-12 12:01] VITALS: BP 114/68
[2019-10-12 16:31] VITALS: BP 130/70
[2019-10-12] MEDS: HYDROCODONE/APAP 5-325MG TABLET PO PRN (18:00)
--- NOTE | 2019-10-12 18:30 | NUR ---
Discharge instructions provided to the patient with verbalized understanding. Discharge papers signed by the patient. Patient remains alert, oriented x4, not in distress. Administered [place] PRN as ordered for complain of pain on right arm. Needs attended to promptly. Spoke to Dr. Piedra and said to continue non-weight bearing on right arm and to keep original surgical dressing on until follow up with MD in 1 wk. Report given to Marlys GALLEGOS from [facility]. Will endorse accordingly to truckman RN.
--- NOTE | 2019-10-12 20:10 | NUR ---
AMBULANCE AT BEDSIDE TO BANK OPERATIONS OFFICER PATIENT. VSS. NO BLEEDING NOTED AT SITE WHERE MID-LINE WAS REMOVED. WILL CONTINUE TO MONITOR AND ASSESS.
--- NOTE | 2019-10-12 20:10 | NUR ---
RECEIVED REPORT FROM RN, PATIENT IS TO BE DISCHARGED TO [facility]. WAITING FOR AMBULANCE PICK-UP. PATIENT WAS PREVIOUSLY MEDICATED WITH MORPHINE PER DAYSHIFT RN PRIOR TO SHIFT CHANGE. VSS. NO RES. DISTRESS NOTED. MID-LINE NOTED TO LEFT UPPER ARM, REMOVED PER FLOW FLOOR ATTENDANT. SLING NOTED TO RIGHT UPPER ARM, ORIGINALLY DRESSING IN PLACE, C/D/I. ALL NEEDS ATTENDED. WILL CONTINUE TO MONITOR AND ASSESS. Addendum: 10/12/19 at 2015 by CHRISTOPHER ELLIS LVN TIME CORRECTION-1944.
--- NOTE | 2019-10-12 20:15 | NUR ---
PATIENT LEFT FACILITY IN STABLE CONDITION. VSS. ALL NEEDS ATTENDED.
== END 2019-10-12 20:15 | DRG 483 ==
LOC: ER 13:49 → MEDSURG3 16:47
PROVIDERS: ADMIT Student in an Organized Health Care Education/Training Program; ATTEND Student in an Organized Health Care Education/Training Program
PROC: 05HC33Z Insertion of Infusion Device into Left Basilic Vein, Percutaneous Approach (ICD-10-PCS; principal; 2019-10-06)
PROC: 0RRJ0J6 Replacement of Right Shoulder Joint with Synthetic Substitute, Humeral Surface, Open Approach (ICD-10-PCS; 2019-10-09)
PROC: 0LM10ZZ Reattachment of Right Shoulder Tendon, Open Approach (ICD-10-PCS; 2019-10-09)
DX: M80.821A Other osteoporosis with current pathological fracture, right humerus, initial encounter for fracture (principal); E43 Unspecified severe protein-calorie malnutrition; E87.1 Hypo-osmolality and hyponatremia; I50.32 Chronic diastolic (congestive) heart failure; I42.9 Cardiomyopathy, unspecified; S43.421A Sprain of right rotator cuff capsule, initial encounter; W01.0XXA Fall on same level from slipping, tripping and stumbling without subsequent striking against object, initial encounter; Y92.89 Other specified places as the place of occurrence of the external cause; E86.0 Dehydration; M06.9 Rheumatoid arthritis, unspecified; I71.4 Abdominal aortic aneurysm, without rupture; M19.90 Unspecified osteoarthritis, unspecified site; E83.42 Hypomagnesemia; R23.3 Spontaneous ecchymoses; M85.80 Other specified disorders of bone density and structure, unspecified site; I70.0 Atherosclerosis of aorta; I25.10 Atherosclerotic heart disease of native coronary artery without angina pectoris; Z87.891 Personal history of nicotine dependence; I25.2 Old myocardial infarction; D53.9 Nutritional anemia, unspecified; E53.8 Deficiency of other specified B group vitamins; E78.5 Hyperlipidemia, unspecified; D72.829 Elevated white blood cell count, unspecified; I11.0 Hypertensive heart disease with heart failure
CPT/HCPCS: 36415; 70030-TC; 71045; 73020; 73030; 73060; 73080; 73090; 73110; 73200; 83735; 84100; 84443; 85025; 85610; 93005; 93307; A4217; A4649; A4663; C1776; G0378; J0690; J1100; J1170; J1720; J1885; J2270; J2405; J2710; J3010; J3370; J3475; J3490; J7030; J7512; J8610

== ENCOUNTER 2020-02-22 20:09 | Inpatient (IN) | payer BC ==
[~2020-02-22] VITALS: Ht 188 cm; Wt 69.7 kg
[~2020-02-22 20:09] MED LIST: CARV6.252 PO; CLON0.5T4 PO; FLUO20CA36 PO; FLUT1BLS6 IH; FOLI0.4T2 PO; HYDR-3972 PO; METH2.5T PO; PRED20TA PO; RAMI10CA69 PO; ROSU10TA2 PO
[2020-02-22] MEDS ORDERED: SODIUM BICARBONATE 4.2 % (NEUT) 5 ML VIAL TP ONE (20:15)
[2020-02-22] MEDS ORDERED: CEFTRIAXONE 1 G VIAL IM ONE (20:15)
[2020-02-22] MEDS ORDERED: LIDOCAINE 1%-EPI 1:100,000 20 ML VIAL IJ ONE (20:15)
[2020-02-22] MEDS ORDERED: TDAP DIPH,PERTUSS,TET VAC/PF 0.5 ML DISP.SYRIN IM ONE ×3 (20:15→21:02)
--- NOTE | 2020-02-22 20:15 | NUR ---
Pt in Room 2A. Dr. Mcdaniel at bedside for MSE.
[2020-02-22] MEDS ORDERED: LIDOCAINE 1%-EPI 1:100,000 20 ML VIAL ONE (20:47)
[2020-02-22] MEDS ORDERED: SODIUM BICARBONATE 4.2 % (NEUT) 5 ML VIAL ONE (20:47)
[2020-02-22] MEDS ORDERED: CEFTRIAXONE 1 G VIAL ONE (20:47)
--- NOTE | 2020-02-22 21:25 | NUR ---
Placed call to Dr. Sanjay Piedra's office for Ortho Consult. Dr. Mcdaniel is on the line with him at this time.
--- NOTE | 2020-02-22 21:35 | NUR ---
Placed first call to [facility] for panel call for admission. Kade COTA is admitting doctor, pending call back.
--- NOTE | 2020-02-22 21:54 | NUR ---
Followed up for panel call
[2020-02-22 22:00] LABS: BASOPHILS % (AUTO) 0.4 % (0.0-2.0); EOSINOPHILS % (AUTO) 0.3 % (0.0-7.0); HEMATOCRIT 34.8 % (36.7-47.1); HEMOGLOBIN 11.5 g/dL (12.5-16.3); LYMPHOCYTES # (AUTO) 0.8 K/uL (20.0-40.0); LYMPHOCYTES % (AUTO) 7.9 % (20.5-51.5); MEAN CORPUSCULAR HEMOGLOBIN 28.8 uug (23.8-33.4); MEAN CORPUSCULAR HGB CONC 33 g/dL (32.5-36.3); MEAN CORPUSCULAR VOLUME 87.2 fL (73.0-96.2); MONOCYTES # (AUTO) 0.6 K/uL (2.0-10.0); MONOCYTES % (AUTO) 6.3 % (0.0-11.0); NEUTROPHILS # (AUTO) 8.2 K/uL (1.8-8.9); NEUTROPHILS % (AUTO) 85.1 % (38.5-71.5); PLATELET COUNT (AUTO) 247 K/uL (152-348); POTASSIUM 4.2 mmol/L (3.5-5.1); RED BLOOD CELL COUNT(AUTO) 3.99 MIL/uL (4.06-5.63); WHITE BLOOD COUNT (AUTO) 9.6 K/uL (3.6-10.2)
[2020-02-22] MEDS ORDERED: HYDROMORPHONE 1 MG/1 ML DISP.SYRIN IV ONE (22:00)
[2020-02-22] MEDS ORDERED: ONDANSETRON 4 MG/2 ML VIAL IV ONE (22:00)
--- NOTE | 2020-02-22 22:02 | NUR ---
Dr. Mcdaniel is speaking [employer] at this time for Panel Call.
[2020-02-22] MEDS ORDERED: IV NS 1000 ML 1,000 ML IV PRN (22:04)
[2020-02-22 22:06] LABS: BILIRUBIN,DIRECT 0.2 mg/dL (0.0-0.2); BILIRUBIN,TOTAL 0.6 mg/dL (0.2-1.0); TOTAL PROTEIN, SERUM 6.8 g/dL (6.4-8.2)
[2020-02-22] MEDS ORDERED: HYDROMORPHONE 2 MG/1 ML DISP.SYRIN ONE (22:08)
[2020-02-22] MEDS ORDERED: ONDANSETRON 4 MG/2 ML VIAL ONE (22:08)
--- NOTE | 2020-02-22 22:10 | NUR ---
Pt. admitted to Med Surg room 317 , under care of CIPRIANO Braun/Ortho: Dr. Colten Piedra. Belongs List completed and accounted for. Addendum: 02/22/20 at 2328 by SANTY Pt will be going to R:[id number]
[2020-02-22] MEDS ORDERED: HYDROMORPHONE 1 MG/1 ML DISP.SYRIN IV PRN (22:15)
[2020-02-22] MEDS ORDERED: ONDANSETRON 4 MG/2 ML VIAL IV PRN (22:15)
[2020-02-22] MEDS ORDERED: ACETAMINOPHEN 650 MG SUPP.RECT RC PRN (22:15)
[2020-02-22] MEDS ORDERED: Z GUARD REMEDY PASTE 57 GM TUBE TOP PRN (22:15)
--- NOTE | 2020-02-22 22:20 | NUR ---
Called to give report to Mandy GALLEGOS, RN will call me back.
--- NOTE | 2020-02-22 22:36 | NUR ---
Report given to Kanchan GALLEGOS. Will roll over pt at this time.
[2020-02-22] MEDS: CEFAZOLIN 1 G in IV DEXTROSE 5% 50 ML IV SCH (23:00)
--- NOTE | 2020-02-22 23:10 | NUR ---
Transported patient to Room 319 via wheelchair in stable condition. Warm handoff to Rose GALLEGOS.
--- NOTE | 2020-02-22 23:10 | NUR ---
Patient received in wheelchair. Patient is AAOx3. Patient denies any acute distress or pain at this time. Patient presents with a L forehead laceration, ecchymosis on bilateral arms, L elbow suturing covered with dry gel foam and all wrapped. Pictures on the pts. chart. Belongings list checked. Vitals are stable. Safety measures in place. Call light within reach. Will continue with the plan of care.
[2020-02-22 23:29] VITALS: BP 141/81
[2020-02-23] MEDS ORDERED: CEFAZOLIN 1 G VIAL ONE (00:22)
[2020-02-23 05:26] LABS: *BILIRUBIN,URIN NEGATIVE (NEGATIVE); *BLOOD, URINE NEGATIVE (NEGATIVE); *CLARITY,URINE CLEAR (CLEAR); *COLOR,URINE DARK YELLOW (YELLOW); *KETONES,URINE 2+ (NEGATIVE); *UROBILINOGEN,URINE 0.2 E.U./dl (NORMAL); LEUKOCYTE ESTERASE ,URINE NEGATIVE (NEGATIVE); NITRITE, URINE NEGATIVE (NEGATIVE); PH,URINE 5.5 (5.0-8.0); UGLUCOSE NEGATIVE (NEGATIVE)
[2020-02-23 06:58] VITALS: BP 134/72
--- NOTE | 2020-02-23 06:58 | NUR ---
Patient slept intermittently throughout the night. Patient is awake and denies acute distress or pain at this time. Patient's vitals stable. IV is intact with NS running at 75ml/hr. Fall precaution maintained. Pain managed effectively. Comfort care and needs attended. Safety measures in place. Call light within reach. Will endorse to the oncoming nurse accordingly.
[2020-02-23 07:20] LABS: BACTERIA,URINE FEW /HPF (NONE SEEN); RBC,URINE 0-3 /HPF (0-3); SQUAMOUS EPITHELIAL CELL,UR FEW /HPF (NONE SEEN); WBC,URINE 0-3 /HPF (0-3)
--- NOTE | 2020-02-23 07:30 | NUR ---
RECEIVED PATIENT IN BED, AWAKE, ALERT AND ORIENTED IN BED. NO EVIDENCE OF RESPIRATORY DISTRESS AT THIS TIME, PATIENT SATURATING WELL ON ROOM AIR. IV INTACT AND PATENT. SKIN INTACT EXCEPT FOR SKIN TEAR ON LEFT ELBOW AND LEFT EYEBROW. PATIENT REPORT PAIN IN LEFT ELBOW, IMPLEMENTED REPOSITIONING AND WILL ADMINISTER PAIN MEDICATION ORDERED.PATIENT KEPT NPO FOR SURGICAL PROCEDURE SCHEDULED THIS MORNING AT 0930. CONSENT SIGNED AND PREOP CHECKLIST DONE. SAFETY PRECAUTIONS IN PLACE, BED IN LOWEST POSITION, LOCKED AND CALL LIGHT AND PATIENT BELONGINGS WITHIN REACH. WILL CONTINUE TO MONITOR AND OBSERVE
[2020-02-23 07:31] LABS: BASOPHILS % (AUTO) 0.2 % (0.0-2.0); EOSINOPHILS % (AUTO) 0.5 % (0.0-7.0); HEMATOCRIT 33.6 % (36.7-47.1); HEMOGLOBIN 10.9 g/dL (12.5-16.3); LYMPHOCYTES # (AUTO) 1.1 K/uL (20.0-40.0); LYMPHOCYTES % (AUTO) 10.8 % (20.5-51.5); MEAN CORPUSCULAR HEMOGLOBIN 28.5 uug (23.8-33.4); MEAN CORPUSCULAR HGB CONC 33 g/dL (32.5-36.3); MEAN CORPUSCULAR VOLUME 87.7 fL (73.0-96.2); MONOCYTES # (AUTO) 0.6 K/uL (2.0-10.0); MONOCYTES % (AUTO) 5.5 % (0.0-11.0); NEUTROPHILS # (AUTO) 8.3 K/uL (1.8-8.9); PLATELET COUNT (AUTO) 250 K/uL (152-348); RED BLOOD CELL COUNT(AUTO) 3.83 MIL/uL (4.06-5.63)
[2020-02-23 07:40] LABS: BILIRUBIN,TOTAL 0.5 mg/dL (0.2-1.0); CREATININE 0.8 mg/dL (0.6-1.3); MAGNESIUM 1.8 mg/dL (1.8-2.4); PHOSPHOROUS 3.8 mg/dL (2.5-4.9); POTASSIUM 4.1 mmol/L (3.5-5.1); TOTAL PROTEIN, SERUM 6.9 g/dL (6.4-8.2)
[2020-02-23 07:45] LABS: THYROID STIMULATING HORMONE 1.217 mIU/mL (0.358-3.740)
[2020-02-23] MEDS: CEFAZOLIN 1 G in IV DEXTROSE 5% 50 ML IV SCH ×2 (07:50→17:51)
[2020-02-23] MEDS ORDERED: POLYMYXIN B SULFATE 500,000 UNITS, BACITRACIN 50,000 UNITS, NORMAL SALINE 20 ML MC ONE ×3 (09:00)
[2020-02-23] MEDS ORDERED: HYDROMORPHONE 2 MG/1 ML DISP.SYRIN ONE (09:11)
[2020-02-23] MEDS ORDERED: VANCOMYCIN HCL 500 MG VIAL ONE (10:34)
--- NOTE | 2020-02-23 12:30 | NUR ---
Received patient back from surgery. Patient stable, oxygen on 2L at 96%, heart rate 81, blood pressure 132/59 and temperature 98.2. Half cast on left arm in sling, patient has sensation in left hand, bounding pulse and able to move fingers. Patient has 9/10 pain will give prn medication. Awaiting new ordered fluids from pharmacy. DVT pumps are on. Will continue to monitor.
[2020-02-23] MEDS: MORPHINE SULFATE 4 MG/1 ML DISP.SYRIN IV PRN ×3 (12:32→20:23)
[2020-02-23] MEDS: IV D5W-0.45% NS +20 KCL 1,000 ML IV PRN (13:27)
[2020-02-23 16:03] VITALS: BP 154/82
--- NOTE | 2020-02-23 19:30 | NUR ---
PATIENT ALERT ORIENTED, NO SOB NO CHEST PAIN. CONT ON PAIN MANAGEMENT DUE S/P L ELBOW SURGERY. PATIENT HAS 1/[address], CONT ON ICE PACK ON L ELBOW. PATIENT ON OXYGEN NO DESATURATION NOTED, CONT ON OXYGEN FOR ASSIST, KEPT CLEAN DRY AND COMFORTABLE. CONT TO MONITOR.
[2020-02-23 20:00] VITALS: BP 141/78
[2020-02-23] MEDS: FLUTICASONE/VILANTEROL 1 EACH BLST.W.DEV INH SCH (20:47)
[2020-02-23] MEDS: HYDROCODONE/APAP 10-325 MG TABLET PO PRN (22:35)
[2020-02-24] MEDS: MORPHINE SULFATE 4 MG/1 ML DISP.SYRIN IV PRN ×4 (01:28→23:34)
[2020-02-24] MEDS: CEFAZOLIN 1 G in IV DEXTROSE 5% 50 ML IV SCH (01:28)
[2020-02-24 04:00] VITALS: BP 136/65
[2020-02-24] MEDS: IV D5W-0.45% NS +20 KCL 1,000 ML IV PRN ×2 (04:48→17:38)
--- NOTE | 2020-02-24 06:40 | NUR ---
PATIENT ALERT ORIENTED, NO SOB NO CHEST PAIN. PATIENT COMPLAIN OF PAIN OF L ELBOW WHEN MOVED, KEPT SLING IN PLACE, REFUSED TO ELEVATE LEFT ELBOW ON THE PILLOW. PATIENT CONTINUE ON PAIN MANAGEMENT, VOIDING ON URINAL, KEPT CLEAN AND DRY. CONT TO MONITOR.
--- NOTE | 2020-02-24 06:43 | NUR ---
PATIENT LEFT HAND WARM TO TOUCH, WITH NON PITTING EDEMA NOTED, NAILS BEDS COLOR WNL. CONT TO MONITOR.
[2020-02-24 07:18] LABS: BASOPHILS % (AUTO) 0.2 % (0.0-2.0); EOSINOPHILS % (AUTO) 0.3 % (0.0-7.0); HEMATOCRIT 29.5 % (36.7-47.1); HEMOGLOBIN 9.7 g/dL (12.5-16.3); LYMPHOCYTES # (AUTO) 0.9 K/uL (20.0-40.0); LYMPHOCYTES % (AUTO) 6.6 % (20.5-51.5); MEAN CORPUSCULAR HEMOGLOBIN 28.6 uug (23.8-33.4); MEAN CORPUSCULAR HGB CONC 33 g/dL (32.5-36.3); MEAN CORPUSCULAR VOLUME 87.3 fL (73.0-96.2); MONOCYTES # (AUTO) 1.1 K/uL (2.0-10.0); MONOCYTES % (AUTO) 8.8 % (0.0-11.0); NEUTROPHILS % (AUTO) 84.1 % (38.5-71.5); PLATELET COUNT (AUTO) 223 K/uL (152-348); RED BLOOD CELL COUNT(AUTO) 3.38 MIL/uL (4.06-5.63); WHITE BLOOD COUNT (AUTO) 13.1 K/uL (3.6-10.2)
[2020-02-24 07:35] LABS: CREATININE 0.7 mg/dL (0.6-1.3); POTASSIUM 3.9 mmol/L (3.5-5.1)
[2020-02-24] MEDS: FLUTICASONE/VILANTEROL 1 EACH BLST.W.DEV INH SCH (08:11)
--- NOTE | 2020-02-24 08:15 | NUR ---
RECEIVED PATIENT IN BED, AWAKE, ALERT AND ORIENTED IN BED. NO EVIDENCE OF RESPIRATORY DISTRESS AT THIS TIME, PATIENT SATURATING WELL ON 2L NASAL CANULA. IV INTACT AND PATENT. SKIN INTACT EXCEPT FOR LEFT EYEBROW AND DRESSING ON LEFT ELBOW. PATIENT REPORT PAIN IN LEFT ELBOW, WILL ADMINISTER PAIN MEDICATION ORDERED AND REASSESSED. PATIENT COMPLAINED OF NAUSEA AND WILL ADMINISTER [place] PRN ORDERED. SAFETY PRECAUTIONS IN PLACE, BED IN LOWEST POSITION, LOCKED AND CALL LIGHT AND PATIENT BELONGINGS WITHIN REACH. WILL CONTINUE TO MONITOR AND OBSERVE
[2020-02-24] MEDS: HYDROCODONE/APAP 10-325 MG TABLET PO PRN (11:46)
[2020-02-24 12:00] VITALS: BP 130/79
[2020-02-24 16:00] VITALS: BP 135/76
--- NOTE | 2020-02-24 19:20 | NUR ---
Received patient lying in bed. AAOx4 In no acute distress. Denies any pain or SOB at this time. Ice compress provided to left arm. Sling in place. IV site on right FA intact and patent. IVF infusing. Safety measure initiated and call gudino within reached.
[2020-02-24 20:30] VITALS: BP 140/89
[2020-02-25 06:00] VITALS: BP 134/78
--- NOTE | 2020-02-25 06:25 | NUR ---
Noted patient IV infiltrated. Discontinue infiltrated IV. Started new IV line on right wrist #20G.
--- NOTE | 2020-02-25 06:31 | NUR ---
AAOx4 In no acute distress. Denies any SOB. Morphine PRN given for complain of pain and effective. Ice compress provided to left arm. Sling in place. IV site on right wrist intact and patent. IVF infusing. Needs assessed and attended to. Safety measure maintained and call gudino within reached.
[2020-02-25 06:51] LABS: BILIRUBIN,TOTAL 0.6 mg/dL (0.2-1.0); CREATININE 0.8 mg/dL (0.6-1.3); MAGNESIUM 1.7 mg/dL (1.8-2.4); PHOSPHOROUS 2.2 mg/dL (2.5-4.9); POTASSIUM 3.9 mmol/L (3.5-5.1); TOTAL PROTEIN, SERUM 6.2 g/dL (6.4-8.2)
[2020-02-25] MEDS ORDERED: NEUTRA PHOS PACKET PO ONE (08:00)
[2020-02-25] MEDS ORDERED: MAGNESIUM OXIDE 400 MG TABLET PO ONE (08:00)
--- NOTE | 2020-02-25 08:00 | NUR ---
PATIENT SEEN AND EXAMINED BY DR LENA CALDERON WITH NEW ORDERS MAG LEVEL IS 1.7 AND PHOS 2.2
[2020-02-25] MEDS: FLUTICASONE/VILANTEROL 1 EACH BLST.W.DEV INH SCH (08:56)
--- NOTE | 2020-02-25 10:00 | NUR ---
PATIENT HAS REQUESTED PAIN MEDICATION SO I TOOK OUT A VIAL OF MORPHINE I INFORMED HIM THAT I WAS GOING TO GIVE HIM THE MORPHINE HE STATED THAT HE DID NOT WANT IT AFTER ALL CHANGED HIS MIND SO THE MORPHINE WAS RETURNED AND WITHNESSED.
[2020-02-25 11:58] VITALS: BP 140/87
[2020-02-25] MEDS: ENSURE ENLIVE (VAN) 240 ML LIQUID PO SCH ×2 (12:00→17:12)
[2020-02-25] MEDS: IV D5W-0.45% NS +20 KCL 1,000 ML IV PRN (12:16)
[2020-02-25 16:00] VITALS: BP 132/74
--- NOTE | 2020-02-25 16:17 | NUR ---
AWAKE ALERT AND VERBALLY RESPONSIVE DENIES PAIN OR DISCOMFORTS AT THIS TIME APPETITE IS POOR REMAIN ON IVF ORDERED CALL LIGHTS AND PERSONAL BELONGINGS ARE WITHIN EASY REACH LEFT ARM WITH SLING INTACT WITH ADEQUATE CIRCULATION AT THIS TIME WILL CONTINUE TO OBSERVE.
--- NOTE | 2020-02-25 18:31 | NUR ---
APPETITE REMAINS POOR BUT DRANK THE ENSURE STATED NOT HUNGRY MADE COMFORTABLE.
[2020-02-25] MEDS: HYDROCODONE/APAP 10-325 MG TABLET PO PRN (18:41)
[2020-02-25] MEDS ORDERED: ACETAMINOPHEN 325 MG TABLET PO PRN (18:45)
--- NOTE | 2020-02-25 19:15 | NUR ---
Received patient lying in bed. AAOx4 In no acute distress. Denies any pain or SOB at this time. Sling in place. IV site on right wrist intact and patent. Safety measure initiated and call gudino within reached.
[2020-02-25 20:29] VITALS: BP 131/76
[2020-02-26] MEDS: IV D5W-0.45% NS +20 KCL 1,000 ML IV PRN (02:29)
[2020-02-26 04:51] VITALS: BP 144/72
[2020-02-26] MEDS: HYDROCODONE/APAP 10-325 MG TABLET PO PRN (06:19)
--- NOTE | 2020-02-26 06:43 | NUR ---
Patient is AAOX4. No signs of acute distress. Patient c/o pain and PRN NORCO was administered per order. Right wrist patent and intact, D5W in 0.45% NS+KCL running at 75 mL/hr. Left cast/splint dry and intact. Needs attended to and met. Safety measures maintained and endorsed to oncoming nurse.
[2020-02-26 06:48] LABS: CREATININE 0.6 mg/dL (0.6-1.3); MAGNESIUM 1.8 mg/dL (1.8-2.4); PHOSPHOROUS 2.7 mg/dL (2.5-4.9); POTASSIUM 4.3 mmol/L (3.5-5.1)
[2020-02-26 06:57] LABS: BASOPHILS % (AUTO) 0.2 % (0.0-2.0); EOSINOPHILS # (AUTO) 0.1 K/uL (0.0-0.7); EOSINOPHILS % (AUTO) 0.5 % (0.0-7.0); HEMOGLOBIN 9.3 g/dL (12.5-16.3); LYMPHOCYTES % (AUTO) 8.2 % (20.5-51.5); MEAN CORPUSCULAR HEMOGLOBIN 28.6 uug (23.8-33.4); MEAN CORPUSCULAR HGB CONC 33 g/dL (32.5-36.3); MEAN CORPUSCULAR VOLUME 86.5 fL (73.0-96.2); MONOCYTES # (AUTO) 1.2 K/uL (2.0-10.0); MONOCYTES % (AUTO) 10.4 % (0.0-11.0); NEUTROPHILS # (AUTO) 9.5 K/uL (1.8-8.9); NEUTROPHILS % (AUTO) 80.7 % (38.5-71.5); PLATELET COUNT (AUTO) 219 K/uL (152-348); RED BLOOD CELL COUNT(AUTO) 3.24 MIL/uL (4.06-5.63); WHITE BLOOD COUNT (AUTO) 11.8 K/uL (3.6-10.2)
--- NOTE | 2020-02-26 07:37 | NUR ---
RECEIVED PATIENT IN BED ASLEEP WITH EYES CLOSED BUT EASILY AROUSABLE ON ROUNDS HE IS CURRENTLY ON O2 AT 2L/M SECONDARY TO O2 SATS BEING 91 PERCENT STATED HE IS HAVING SOME SOB AND WANTS THE O2 WILL RECHECK HIS SATS PER UNIT PROTOCL TO SEE WHAT HIS SAT IS AT THAT TIME.
[2020-02-26] MEDS: ENSURE ENLIVE (VAN) 240 ML LIQUID PO SCH ×3 (08:23→17:09)
[2020-02-26] MEDS: FLUTICASONE/VILANTEROL 1 EACH BLST.W.DEV INH SCH (08:24)
--- NOTE | 2020-02-26 11:05 | NUR ---
PATIENT SEEN AND EXAMINED BY JONE WITH ORDER TO START PATIENT ON MEGACE TO HELP STIMULATE HIS APPETITE PATIENT IS NOT EATING AND STATED THAT HE IS NOT HUNGRY
[2020-02-26 11:46] VITALS: BP 115/72
[2020-02-26] MEDS ORDERED: MEGESTROL ACETATE 400 MG/10 ML LIQUID UDC PO SCH (12:00)
--- NOTE | 2020-02-26 12:38 | NUR ---
SLEEVE SEPARATOR LENA STATED THAT PATIENT WILL BE DISCHARGED TO [facility] TODAY AWAITING FOR DISCHARGE ORDERS.
[2020-02-26] MEDS ORDERED: MEGE400O4 PO (13:02)
[2020-02-26] MEDS ORDERED: HYDR-3980 PO (13:02)
--- NOTE | 2020-02-26 14:23 | NUR ---
CALLED DR GLYNN OFFICE SPOKE WITH POLI THAT PATIENT WAS BEING DISCHARGED AND WONDERING IF HE WANTED ME TO CHANGE THE DRESSING AND POLI CALLED ME BACK AFTER TALKING WITH DR SERNA AND STATED THAT THE DOCTOR DID NOT WANT THE DRESSING CHANGED STATED THAT HE WANTS THE PATIENT TO COME TO HIS OFFICE FOR EVALUATION WITHIN THIS WEEK WILL ENDORSE TO THE SNF.
[2020-02-26 16:00] VITALS: BP 129/72
--- NOTE | 2020-02-26 16:30 | NUR ---
GALINDO GOODRICH SPOKE WITH MOE AND REPORT GIVEN TO HER FOR CONTINUING CARE ALSO SHE WAS NOTIFIED THAT DR SERNA WANTS PATIENT TO COME TO HIS OFFICE WITHIN THIS WEEK FOR APPOINTMENT AND SHE EXPRESSED UNDERSTANDING.
[2020-02-26] MEDS ORDERED: IV LACTATED RINGERS SOLUTION 1,000 ML BAG IV ONE (18:34)
[2020-02-26] MEDS ORDERED: PROPOFOL 200 MG/20 ML BOTTLE IV ONE (18:34)
[2020-02-26] MEDS ORDERED: ONDANSETRON 4 MG/2 ML VIAL IV ONE (18:34)
[2020-02-26] MEDS ORDERED: CEFAZOLIN 1 G VIAL IM ONE (18:34)
[2020-02-26] MEDS ORDERED: SEVOFLURANE 250 ML BOTTLE IH ONE (18:34)
[2020-02-26] MEDS ORDERED: LIDOCAINE HCL-MPF 1% 5 ML VIAL IJ ONE (18:34)
[2020-02-26] MEDS ORDERED: IV NORMAL SALINE 1000 ML BAG IV ONE (18:34)
--- NOTE | 2020-02-26 18:35 | NUR ---
PATIENT DISCHARGED TO [facility] IN SATISFACTORY CONDITION WITH DISCHARGE INSTRUCTIONS AND ALL OF HER PERSONAL BELONGINGS INCLUDING HER HOME MEDICATIONS PICKED UP FROM [facility].PATIENT WAS IN NO DISTRESS AT THE TIME OF DISCHARGE.
--- NOTE | 2020-02-28 21:25 | NUR ---
Addendum Note: On 02/22/2020, 2210 RN administered 1mg Dilaudid IV Injection, 1mg wasted per facility protocols.
== END 2020-02-26 18:35 | DRG 501 ==
LOC: ER 20:12 → MEDSURG3 22:42
PROVIDERS: ADMIT Hospitalist; ATTEND Nurse Practitioner Acute Care
PROC: 0JQH0ZZ Repair Left Lower Arm Subcutaneous Tissue and Fascia, Open Approach (ICD-10-PCS; 2020-02-22)
PROC: 0PSL04Z Reposition Left Ulna with Internal Fixation Device, Open Approach (ICD-10-PCS; principal; 2020-02-23)
DX: S52.022B Displaced fracture of olecranon process without intraarticular extension of left ulna, initial encounter for open fracture type I or II (principal); J98.11 Atelectasis; E44.0 Moderate protein-calorie malnutrition; Z68.1 Body mass index [BMI] 19.9 or less, adult; E83.39 Other disorders of phosphorus metabolism; D64.9 Anemia, unspecified; F41.9 Anxiety disorder, unspecified; I48.91 Unspecified atrial fibrillation; I10 Essential (primary) hypertension; M06.9 Rheumatoid arthritis, unspecified; W01.0XXA Fall on same level from slipping, tripping and stumbling without subsequent striking against object, initial encounter; S51.012A Laceration without foreign body of left elbow, initial encounter; Y93.9 Activity, unspecified; Y92.009 Unspecified place in unspecified non-institutional (private) residence as the place of occurrence of the external cause; R91.8 Other nonspecific abnormal finding of lung field; E88.09 Other disorders of plasma-protein metabolism, not elsewhere classified; S00.212A Abrasion of left eyelid and periocular area, initial encounter; Z79.01 Long term (current) use of anticoagulants; E83.42 Hypomagnesemia
CPT/HCPCS: 36415; 70450; 71045; 71250; 73070; 73080; 83735; 84100; 84443; 85025; 85730; 86850; 86900; 86901; 90715; 93005; A4649; G0378; J0690; J0696; J1170; J2270; J2405; J3370; J3490; J7030; J7050; J7060; J7120; J8999; U0003-CS

== ENCOUNTER 2020-06-26 12:15 | Inpatient (IN) | payer BC ==
[~2020-06-26] VITALS: Ht 182.9 cm; Wt 58.5 kg
[~2020-06-26 12:15] MED LIST changes: -HYDR-3972 PO; +HYDR-3980 PO; +MEGE400O4 PO; -PRED20TA PO
[2020-06-26] MEDS ORDERED: ALTACE (12:37)
[2020-06-26] MEDS ORDERED: COREG (12:37)
--- NOTE | 2020-06-26 12:37 | NUR ---
PT CAN NOT PROVIDE UPDATED INFORMATION ABOUT HIS HOME MEDICATION. HIS RELATIVES ARE GOING TO BRING HOME MEDICATION LIST LATER.
[2020-06-26] MEDS ORDERED: LET TOPICAL SOLUTION 8 ML UDC TP ONE (12:45)
[2020-06-26] MEDS ORDERED: LIDOCAINE VISCUS 2% 15 ML UDC XX ONE (12:45)
[2020-06-26] MEDS ORDERED: SODIUM BICARBONATE 4.2 % (NEUT) 5 ML VIAL TP ONE (12:45)
[2020-06-26] MEDS ORDERED: LIDOCAINE VISCUS 2% 15 ML UDC ONE (12:45)
[2020-06-26] MEDS ORDERED: LET TOPICAL SOLUTION 8 ML UDC ONE (12:45)
[2020-06-26] MEDS ORDERED: NEOMY/BACITRA/POLYMYXIN B OINT UD PACKET TP ONE ×2 (12:45)
[2020-06-26] MEDS ORDERED: TDAP DIPH,PERTUSS,TET VAC/PF 0.5 ML DISP.SYRIN IM ONE ×2 (12:45→12:46)
[2020-06-26] MEDS ORDERED: SODIUM BICARBONATE 4.2 % (NEUT) 5 ML VIAL ONE (12:45)
[2020-06-26 12:48] LABS: BASOPHILS # (AUTO) 0.1 K/uL (0.0-8.0); BASOPHILS % (AUTO) 0.7 % (0.0-2.0); EOSINOPHILS # (AUTO) 0.3 K/uL (0.0-0.7); EOSINOPHILS % (AUTO) 3.2 % (0.0-7.0); HEMATOCRIT 30.8 % (36.7-47.1); HEMOGLOBIN 10.1 g/dL (12.5-16.3); LYMPHOCYTES # (AUTO) 1.1 K/uL (20.0-40.0); MEAN CORPUSCULAR HEMOGLOBIN 27.2 uug (23.8-33.4); MEAN CORPUSCULAR HGB CONC 33 g/dL (32.5-36.3); MEAN CORPUSCULAR VOLUME 82.9 fL (73.0-96.2); MONOCYTES # (AUTO) 1.1 K/uL (2.0-10.0); MONOCYTES % (AUTO) 13.7 % (0.0-11.0); NEUTROPHILS # (AUTO) 5.6 K/uL (1.8-8.9); NEUTROPHILS % (AUTO) 68.4 % (38.5-71.5); PLATELET COUNT (AUTO) 330 K/uL (152-348); RED BLOOD CELL COUNT(AUTO) 3.71 MIL/uL (4.06-5.63); WHITE BLOOD COUNT (AUTO) 8.2 K/uL (3.6-10.2)
[2020-06-26 12:57] LABS: CREATININE 0.7 mg/dL (0.6-1.3); POTASSIUM 4.3 mmol/L (3.5-5.1)
[2020-06-26 13:03] LABS: BILIRUBIN,DIRECT 0.1 mg/dL (0.0-0.2); BILIRUBIN,TOTAL 0.3 mg/dL (0.2-1.0); TOTAL PROTEIN, SERUM 6.7 g/dL (6.4-8.2)
[2020-06-26] MEDS ORDERED: CARV3.122 PO (13:04)
[2020-06-26] MEDS ORDERED: LIDOCAINE HCL 2% 20 ML VIAL ONE (13:29)
[2020-06-26] MEDS ORDERED: LIDOCAINE HCL 2% 20 ML VIAL IJ ONE (13:30)
[2020-06-26] MEDS ORDERED: ONDANSETRON 4 MG/2 ML VIAL ONE (13:38)
[2020-06-26] MEDS ORDERED: MORPHINE SULFATE 4 MG/1 ML DISP.SYRIN ONE ×2 (13:38→13:56)
[2020-06-26] MEDS ORDERED: ONDANSETRON 4 MG/2 ML VIAL IV ONE (13:45)
[2020-06-26] MEDS ORDERED: MORPHINE SULFATE 4 MG/1 ML DISP.SYRIN IV ONE ×2 (13:45→14:00)
[2020-06-26 17:27] LABS: *BILIRUBIN,URIN NEGATIVE (NEGATIVE); *BLOOD, URINE NEGATIVE (NEGATIVE); *CLARITY,URINE SLIGHTLY CLOUDY (CLEAR); *COLOR,URINE YELLOW (YELLOW); *KETONES,URINE NEGATIVE (NEGATIVE); LEUKOCYTE ESTERASE ,URINE 3+ (NEGATIVE); NITRITE, URINE NEGATIVE (NEGATIVE); UGLUCOSE NEGATIVE (NEGATIVE)
[2020-06-26] MEDS ORDERED: CLONAZEPAM 0.5 MG TABLET PO PRN (17:30)
[2020-06-26] MEDS ORDERED: HYDROCODONE/APAP 10-325 MG TABLET PO ONE (17:30)
[2020-06-26] MEDS ORDERED: ONDANSETRON 4 MG/2 ML VIAL IV PRN (17:30)
[2020-06-26] MEDS ORDERED: TEMAZEPAM 15 MG CAPSULE PO PRN (17:30)
[2020-06-26] MEDS ORDERED: HYDROCODONE/APAP 10-325 MG TABLET ONE (17:39)
--- NOTE | 2020-06-26 19:29 | NUR ---
transfered pt to floor in stable condition. Addendum: 06/26/20 at 1929 by RAQUEL pt reamined calm the whole er stay. pt urinated in the urinal x 2 .
--- NOTE | 2020-06-26 19:55 | NUR ---
Patient arrived on unit alert at oriented at 1954 via lisa from ER. Pt is on Tele under Dr. Shorty Mckinney. Pt is SR. Skin check was done and found laceration on left forehead with ai, R wrist bruising and skin tear, L FA bruising and sacral redness and R and L groin redness. PT is on 2L. Instructed patient not to get up. Call light is within reach and bed alarm is on. Will continue to monitor.
[2020-06-26 20:14] VITALS: BP 107/65
[2020-06-26] MEDS: MORPHINE SULFATE 2 MG/1 ML DISP.SYRIN IV PRN (21:06)
[2020-06-26] MEDS: DOCUSATE SODIUM 250 MG CAPSULE PO SCH (21:43)
[2020-06-26 22:01] VITALS: BP 107/65
[2020-06-26] MEDS ORDERED: Z GUARD REMEDY PASTE 57 GM TUBE TOP PRN (22:45)
[2020-06-27 02:04] VITALS: BP 120/85
[2020-06-27 04:06] VITALS: BP 135/69
[2020-06-27] MEDS: PANTOPRAZOLE SODIUM 40 MG TABLET.DR PO SCH (07:02)
--- NOTE | 2020-06-27 07:19 | NUR ---
Patient slept intermittently throughout the night. Episodes of Sinus Rythm trigeminal with cuplets at 78bpm. On 2L/min NC. Labs in AM. Vital signs stable. No s/s of acute distress. Will endorse to day shift
[2020-06-27 07:25] LABS: BASOPHILS % (AUTO) 0.4 % (0.0-2.0); EOSINOPHILS # (AUTO) 0.2 K/uL (0.0-0.7); EOSINOPHILS % (AUTO) 2.6 % (0.0-7.0); HEMOGLOBIN 10.4 g/dL (12.5-16.3); LYMPHOCYTES # (AUTO) 0.9 K/uL (20.0-40.0); LYMPHOCYTES % (AUTO) 8.9 % (20.5-51.5); MEAN CORPUSCULAR HEMOGLOBIN 27.3 uug (23.8-33.4); MEAN CORPUSCULAR HGB CONC 32 g/dL (32.5-36.3); MEAN CORPUSCULAR VOLUME 84.2 fL (73.0-96.2); MONOCYTES # (AUTO) 0.8 K/uL (2.0-10.0); MONOCYTES % (AUTO) 8.8 % (0.0-11.0); NEUTROPHILS # (AUTO) 7.6 K/uL (1.8-8.9); NEUTROPHILS % (AUTO) 79.3 % (38.5-71.5); PLATELET COUNT (AUTO) 339 K/uL (152-348); WHITE BLOOD COUNT (AUTO) 9.6 K/uL (3.6-10.2)
[2020-06-27 07:47] LABS: BILIRUBIN,TOTAL 0.4 mg/dL (0.2-1.0); CREATININE 0.6 mg/dL (0.6-1.3); MAGNESIUM 1.8 mg/dL (1.8-2.4); PHOSPHOROUS 4.2 mg/dL (2.5-4.9); TOTAL PROTEIN, SERUM 6.9 g/dL (6.4-8.2)
--- NOTE | 2020-06-27 08:00 | NUR ---
received pt. resting in bed alert oriented x3. pt. states he has generalized body pain. Will assess pain and provide PRN pain medication. Pt. denies sob/ difficulty breathing. pt. saturating on room air. IV intact patent saline lock. safety measures in place. call light within reach. will continue to monitor pt.
[2020-06-27] MEDS: FOLIC ACID 1 MG TABLET PO SCH (08:41)
[2020-06-27] MEDS: CARVEDILOL 3.125 MG TABLET PO SCH (08:41)
[2020-06-27] MEDS: FLUOXETINE HCL 20 MG CAPSULE PO SCH (08:41)
[2020-06-27] MEDS: MORPHINE SULFATE 2 MG/1 ML DISP.SYRIN IV PRN (09:23)
[2020-06-27] MEDS: CEFTRIAXONE 1 G in IV DEXTROSE 5% 50 ML IV SCH (09:41)
[2020-06-27 11:49] VITALS: BP 95/56
[2020-06-27] MEDS: HYDROCODONE/APAP 5-325MG TABLET PO PRN ×2 (12:22→19:43)
[2020-06-27 15:59] LABS: BACTERIA,URINE MODERATE /HPF (NONE SEEN); CALCIUM OXALATE CRYSTALS,UR RARE /HPF (NONE SEEN); RBC,URINE 0-3 /HPF (0-3); SQUAMOUS EPITHELIAL CELL,UR FEW /HPF (NONE SEEN); URINE AMORPHOUS URATE MANY /HPF
[2020-06-27 16:18] VITALS: BP 102/66
--- NOTE | 2020-06-27 19:20 | NUR ---
Patient received alert and oriented in bed. Pt is awake and denies any pain or discomfort at this time. No SOB. On 2L NC. No acute distress at this time. Will continue to monitor.
--- NOTE | 2020-06-27 19:43 | NUR ---
Pt c/o pain 03/31 and was given prn [place] for pain. Pt tolerated medication well.
[2020-06-27 20:00] VITALS: BP 122/74
[2020-06-27] MEDS: DOCUSATE SODIUM 250 MG CAPSULE PO SCH (20:14)
[2020-06-28] MEDS: HYDROCODONE/APAP 5-325MG TABLET PO PRN ×3 (02:12→20:48)
[2020-06-28] MEDS: ACETAMINOPHEN 325 MG TABLET PO PRN (04:22)
--- NOTE | 2020-06-28 04:22 | NUR ---
Patient c/o minor pain ion left knee. Given Tylenol and provided patient with ice packs to help relieve pain.
[2020-06-28] MEDS: PANTOPRAZOLE SODIUM 40 MG TABLET.DR PO SCH (06:11)
--- NOTE | 2020-06-28 06:48 | NUR ---
Patient slept intermittently throughout the night. No s/s of respiratory distress at this time. On 2L NC. Some pain was reported throughout the night and was addressed with medication and ice packs. No acute distress at this time. Denies and SOB or chest pain. Safety and comfort provided. Will endorse to day shift.
[2020-06-28 07:04] LABS: BASOPHILS % (AUTO) 0.5 % (0.0-2.0); EOSINOPHILS # (AUTO) 0.4 K/uL (0.0-0.7); EOSINOPHILS % (AUTO) 4.8 % (0.0-7.0); HEMATOCRIT 28.7 % (36.7-47.1); HEMOGLOBIN 9.6 g/dL (12.5-16.3); LYMPHOCYTES # (AUTO) 1.1 K/uL (20.0-40.0); LYMPHOCYTES % (AUTO) 14.5 % (20.5-51.5); MEAN CORPUSCULAR HEMOGLOBIN 27.7 uug (23.8-33.4); MEAN CORPUSCULAR HGB CONC 33 g/dL (32.5-36.3); MEAN CORPUSCULAR VOLUME 82.9 fL (73.0-96.2); MONOCYTES # (AUTO) 0.9 K/uL (2.0-10.0); MONOCYTES % (AUTO) 11.6 % (0.0-11.0); NEUTROPHILS # (AUTO) 5.2 K/uL (1.8-8.9); NEUTROPHILS % (AUTO) 68.6 % (38.5-71.5); PLATELET COUNT (AUTO) 308 K/uL (152-348); RED BLOOD CELL COUNT(AUTO) 3.46 MIL/uL (4.06-5.63); WHITE BLOOD COUNT (AUTO) 7.6 K/uL (3.6-10.2)
--- NOTE | 2020-06-28 07:30 | NUR ---
Patient received awake, alert and oriented in bed. Patient denies any pain or discomfort at this time. No shortness of breath is noted, patient is saturating well. Patient is on 2L Nasal cannula . No acute distress at this time. Safety measures are in place with call light and belongings within reach. Will continue to monitor
[2020-06-28 07:40] LABS: THYROID STIMULATING HORMONE 0.936 mIU/mL (0.358-3.740)
[2020-06-28 08:16] LABS: BILIRUBIN,TOTAL 0.4 mg/dL (0.2-1.0); CREATININE 0.7 mg/dL (0.6-1.3); MAGNESIUM 1.8 mg/dL (1.8-2.4); PHOSPHOROUS 3.6 mg/dL (2.5-4.9); POTASSIUM 3.8 mmol/L (3.5-5.1); TOTAL PROTEIN, SERUM 6.6 g/dL (6.4-8.2)
[2020-06-28 08:26] LABS: URIC ACID 5.4 mg/dL (3.5-7.2)
[2020-06-28] MEDS: CARVEDILOL 3.125 MG TABLET PO SCH (09:00)
[2020-06-28] MEDS: CEFTRIAXONE 1 G in IV DEXTROSE 5% 50 ML IV SCH (09:08)
[2020-06-28] MEDS: FOLIC ACID 1 MG TABLET PO SCH (09:08)
[2020-06-28] MEDS: FLUOXETINE HCL 20 MG CAPSULE PO SCH (09:08)
[2020-06-28] MEDS: MORPHINE SULFATE 2 MG/1 ML DISP.SYRIN IV PRN ×2 (09:22→14:20)
[2020-06-28 11:35] VITALS: BP 148/99
--- NOTE | 2020-06-28 14:29 | NUR ---
Patient asked for pain medication. I went in the room and callie up the medication then the patient said he didn't want the Morphine but instead wanted the Landrum. Will reassess.
--- NOTE | 2020-06-28 15:45 | NUR ---
Patient reports pain in his left knee. Upon assessment the patient's left kneel is swollen and significantly larger than the right, Will make MD aware. Will continue to monitor.
--- NOTE | 2020-06-28 15:52 | NUR ---
Dr Oro order is to request a CT of the left leg without contrast. Will continue to monitor.
[2020-06-28 16:00] VITALS: BP 124/68
--- NOTE | 2020-06-28 18:34 | NUR ---
Patient is resting in bed. No sign of distress noted at this time. CT of the knee ordered but not yet completed. Gave all medications as ordered. Safety measures are in place. Will endorse to the oncoming nurse.
[2020-06-28 20:42] VITALS: BP 107/71
[2020-06-28] MEDS: DOCUSATE SODIUM 250 MG CAPSULE PO SCH (20:47)
[2020-06-28] MEDS ORDERED: TEMAZEPAM 7.5 MG CAPSULE PO PRN (23:45)
[2020-06-29] MEDS: ACETAMINOPHEN 325 MG TABLET PO PRN ×2 (02:53→20:17)
[2020-06-29 04:12] VITALS: BP 120/75
[2020-06-29 06:44] LABS: BASOPHILS % (AUTO) 0.6 % (0.0-2.0); EOSINOPHILS # (AUTO) 0.3 K/uL (0.0-0.7); EOSINOPHILS % (AUTO) 3.7 % (0.0-7.0); HEMATOCRIT 30.3 % (36.7-47.1); HEMOGLOBIN 10.1 g/dL (12.5-16.3); LYMPHOCYTES % (AUTO) 12.3 % (20.5-51.5); MEAN CORPUSCULAR HEMOGLOBIN 27.5 uug (23.8-33.4); MEAN CORPUSCULAR HGB CONC 33 g/dL (32.5-36.3); MEAN CORPUSCULAR VOLUME 82.9 fL (73.0-96.2); MONOCYTES % (AUTO) 11.5 % (0.0-11.0); NEUTROPHILS % (AUTO) 71.9 % (38.5-71.5); PLATELET COUNT (AUTO) 307 K/uL (152-348); RED BLOOD CELL COUNT(AUTO) 3.65 MIL/uL (4.06-5.63); WHITE BLOOD COUNT (AUTO) 8.3 K/uL (3.6-10.2)
[2020-06-29 06:54] LABS: CREATININE 0.6 mg/dL (0.6-1.3); MAGNESIUM 1.6 mg/dL (1.8-2.4); PHOSPHOROUS 3.6 mg/dL (2.5-4.9); POTASSIUM 3.8 mmol/L (3.5-5.1)
[2020-06-29] MEDS: FLUOXETINE HCL 20 MG CAPSULE PO SCH (08:41)
[2020-06-29] MEDS: FOLIC ACID 1 MG TABLET PO SCH (08:41)
[2020-06-29] MEDS: PANTOPRAZOLE SODIUM 40 MG TABLET.DR PO SCH (08:41)
[2020-06-29] MEDS: CEFTRIAXONE 1 G in IV DEXTROSE 5% 50 ML IV SCH (08:42)
[2020-06-29] MEDS: CARVEDILOL 3.125 MG TABLET PO SCH (08:42)
[2020-06-29] MEDS ORDERED: MAGNESIUM OXIDE 400 MG TABLET PO ONE (10:00)
[2020-06-29 12:00] VITALS: BP 121/78
[2020-06-29 15:56] VITALS: BP 122/72
[2020-06-29] MEDS: HYDROCODONE/APAP 5-325MG TABLET PO PRN (16:48)
--- NOTE | 2020-06-29 17:00 | NUR ---
PATIENT RECEIVED IN BED, NO SOB, NO C/O PAIN NOTED, CALL LIGHT WITH EASY REACH,
--- NOTE | 2020-06-29 19:30 | NUR ---
RECEIVED PT AWAKE, ALERT AND ORIENTEDX3. PT HARD OF HEARING. PT IN NO ACUTE DISTRESS. PT IV INTACT. PT ON 2L OXYGEN VIA NASAL CANNULA. SAFETY AND COMFORT PROVIDED. WILL CONTINUE TO MONITOR.
[2020-06-29] MEDS: DOCUSATE SODIUM 250 MG CAPSULE PO SCH (20:17)
[2020-06-29 20:26] VITALS: BP 115/78
--- NOTE | 2020-06-29 21:17 | NUR ---
PT GIVEN TYLENOL PRN FOR PAIN AT 2017H. PT TOLERATED IT WELL. PT FELT BETTER AFTER AN HOUR. WILL CONTINUE TO MONITOR.
[2020-06-29] MEDS: ZOLPIDEM 5 MG TABLET PO PRN (21:24)
--- NOTE | 2020-06-29 22:00 | NUR ---
son ot the pt called for update regarding hid dad. Son on the person to notify based on the facesheet. Updated the son on condition of his dad. Gave number of epic group for him to call the doctor. Pt stable.
[2020-06-30] MEDS: HYDROCODONE/APAP 5-325MG TABLET PO PRN ×4 (02:12→23:01)
--- NOTE | 2020-06-30 03:12 | NUR ---
At 0212h pt given norco for 9/10 pain scale. Pt tolerated it well. After an hour pt stated felt better. Safety and comfort provided. Will continue to monitor.
[2020-06-30 04:00] VITALS: BP 120/62
[2020-06-30 05:54] LABS: BASOPHILS % (AUTO) 0.6 % (0.0-2.0); EOSINOPHILS # (AUTO) 0.3 K/uL (0.0-0.7); EOSINOPHILS % (AUTO) 4.2 % (0.0-7.0); HEMATOCRIT 29.7 % (36.7-47.1); LYMPHOCYTES # (AUTO) 1.2 K/uL (20.0-40.0); LYMPHOCYTES % (AUTO) 14.8 % (20.5-51.5); MEAN CORPUSCULAR HEMOGLOBIN 27.8 uug (23.8-33.4); MEAN CORPUSCULAR HGB CONC 34 g/dL (32.5-36.3); MEAN CORPUSCULAR VOLUME 82.8 fL (73.0-96.2); MONOCYTES % (AUTO) 12.7 % (0.0-11.0); NEUTROPHILS # (AUTO) 5.6 K/uL (1.8-8.9); NEUTROPHILS % (AUTO) 67.7 % (38.5-71.5); PLATELET COUNT (AUTO) 318 K/uL (152-348); RED BLOOD CELL COUNT(AUTO) 3.59 MIL/uL (4.06-5.63); WHITE BLOOD COUNT (AUTO) 8.2 K/uL (3.6-10.2)
--- NOTE | 2020-06-30 06:18 | NUR ---
PT SLEPT INTERMITTENTLY. PT IN NO ACUTE DISTRESS. IV INTACT. PRESCRIBED MEDICATION GIVEN AND PT TOLERATED IT WELL. AMBIEN GIVEN PRN AT 2124H FOR SLEEP PER PT REQUEST. NORCO GIVEN PRN 0212H. PT TOLERATED IT WELL. PT SAFETY AND COMFORT PROVIDED. WILL ENDORSE TO INCOMING NURSE FOR CONTINUITY OF CARE.
[2020-06-30] MEDS: PANTOPRAZOLE SODIUM 40 MG TABLET.DR PO SCH (06:23)
[2020-06-30 06:27] LABS: BILIRUBIN,TOTAL 0.4 mg/dL (0.2-1.0); CREATININE 0.7 mg/dL (0.6-1.3); MAGNESIUM 1.8 mg/dL (1.8-2.4); PHOSPHOROUS 3.4 mg/dL (2.5-4.9); POTASSIUM 4.1 mmol/L (3.5-5.1); TOTAL PROTEIN, SERUM 6.8 g/dL (6.4-8.2)
[2020-06-30] MEDS: FOLIC ACID 1 MG TABLET PO SCH (08:57)
[2020-06-30] MEDS: FLUOXETINE HCL 20 MG CAPSULE PO SCH (08:58)
[2020-06-30] MEDS: CARVEDILOL 3.125 MG TABLET PO SCH (09:00)
[2020-06-30] MEDS: CEFTRIAXONE 1 G in IV DEXTROSE 5% 50 ML IV SCH (09:45)
[2020-06-30 11:32] VITALS: BP 113/71
[2020-06-30 12:07] LABS: A/G RATIO 0.6 (0.7-1.7); ALBUMIN 2.4 g/dL (2.9-4.4); ALPHA-1-GLOBULIN 0.4 g/dL (0.0-0.4); ALPHA-2-GLOBULIN 1.1 g/dL (0.4-1.0); BETA GLOBULIN 1.2 g/dL (0.7-1.3); GLOBULIN, TOTAL 3.7 g/dL (2.2-3.9); M-SPIKE Not Observed g/dL (Not Observed)
--- NOTE | 2020-06-30 15:51 | NUR ---
Pt received, assessed, no acute distress, or SOB noted. PRN pain medication administered as ordered. All comfort and safety needs attended to promptly. IV flushes, is patent, and intact. Pt seen by new order for home inhaler received, entered, and will follow up with administration. Pt compliant with care as offered. Will continue to monitor and follow up.
[2020-06-30 15:54] VITALS: BP 122/73
[2020-06-30] MEDS: TRELEGY ELLIPTA INH SCH (16:26)
[2020-06-30] MEDS: ENSURE ENLIVE (VAN) 240 ML LIQUID PO SCH (18:33)
--- NOTE | 2020-06-30 19:24 | NUR ---
RECEIVED PT AWAKE, ALERT AND ORIENTEDX3. PT IN NO ACUTE DISTRESS. IV INTACT. PT ON 2L NASAL CANNULA WITH HUMIDIFIER. IV INTACT. SAFETY AND COMFORT PROVIDED. WILL CONTINUE TO MONITOR.
[2020-06-30] MEDS: DOCUSATE SODIUM 250 MG CAPSULE PO SCH (20:04)
[2020-06-30] MEDS: MORPHINE SULFATE 2 MG/1 ML DISP.SYRIN IV PRN (20:04)
[2020-06-30] MEDS: ENOXAPARIN SODIUM 40 MG/0.4 ML DISP.SYRIN SQ SCH (20:05)
[2020-06-30 20:43] VITALS: BP_SYST 101; BP_SYST 102; BP_SYST 115; BP_DIAS 62; BP_DIAS 65; BP_DIAS 73
--- NOTE | 2020-06-30 21:19 | NUR ---
at 2003 MORPHINE 2MG GIVEN FOR 10/10 PAIN SCALE FOR GENERALIZED PAIN. PT TOLERATED IT WELL. VITAL SIGNS STABLE. AFTER AN HOUR PT PAIN IMPROVED IT BECAME 2/10 PAIN SCALE. PT STABLE. SAFETY AND COMFORT PROVIDED. WILL CONTINUE TO MONITOR. PT STATED HE STILL WANTS HIS NORCO MEDICATION BECAUSE HE IS USED TO IT AND MORE EFFECTIVE FOR HIM AND ALSO WANTS HIS SLEEPING MEDICATION. TOLD HIM I CAN GIVE IT TO HIM IF ITS DUE ALREADY AND I CAN'T GIVE THE PAIN MEDICATION AND SLEEPING MEDICATION AT THE SAME TIME. PT AWARE.
[2020-07-01] MEDS: ZOLPIDEM 5 MG TABLET PO PRN (00:20)
--- NOTE | 2020-07-01 00:34 | NUR ---
AT 2301H NORCO WAS GIVEN FOR 10/10 PAIN SCALE FOR GENERALIZED PAIN. PER PT NORCO IS MORE EFFECTIVE FOR HER RATHER THAN MORPHINE. AFTER AN HOUR PT STATED HE FELT BETTER AND WANTS HIS SLEEPING MEDICATION. AMBIEN PRN GIVEN AT 0020H. PT IN NO ACUTE DISTRESS. PT TOLERATED IT WELL. WILL CONTINUE TO MONITOR.
[2020-07-01 04:00] VITALS: BP 117/70
[2020-07-01] MEDS: HYDROCODONE/APAP 5-325MG TABLET PO PRN ×3 (05:46→17:25)
--- NOTE | 2020-07-01 05:48 | NUR ---
NORCO GIVEN PRN FOR 10/10 PAIN SCALE. PT TOLERATED IT WELL. WILL CONTINUE TO MONITOR
[2020-07-01] MEDS: PANTOPRAZOLE SODIUM 40 MG TABLET.DR PO SCH (06:39)
[2020-07-01 07:13] LABS: BASOPHILS % (AUTO) 0.6 % (0.0-2.0); EOSINOPHILS # (AUTO) 0.2 K/uL (0.0-0.7); EOSINOPHILS % (AUTO) 2.8 % (0.0-7.0); HEMATOCRIT 30.2 % (36.7-47.1); HEMOGLOBIN 10.2 g/dL (12.5-16.3); LYMPHOCYTES # (AUTO) 1.1 K/uL (20.0-40.0); LYMPHOCYTES % (AUTO) 13.5 % (20.5-51.5); MEAN CORPUSCULAR HEMOGLOBIN 27.9 uug (23.8-33.4); MEAN CORPUSCULAR HGB CONC 34 g/dL (32.5-36.3); MEAN CORPUSCULAR VOLUME 82.4 fL (73.0-96.2); MONOCYTES # (AUTO) 1.1 K/uL (2.0-10.0); MONOCYTES % (AUTO) 13.8 % (0.0-11.0); NEUTROPHILS # (AUTO) 5.5 K/uL (1.8-8.9); NEUTROPHILS % (AUTO) 69.3 % (38.5-71.5); PLATELET COUNT (AUTO) 327 K/uL (152-348); RED BLOOD CELL COUNT(AUTO) 3.66 MIL/uL (4.06-5.63); WHITE BLOOD COUNT (AUTO) 7.9 K/uL (3.6-10.2)
[2020-07-01 07:31] LABS: CREATININE 0.6 mg/dL (0.6-1.3); MAGNESIUM 1.9 mg/dL (1.8-2.4); PHOSPHOROUS 3.8 mg/dL (2.5-4.9); POTASSIUM 4.1 mmol/L (3.5-5.1)
--- NOTE | 2020-07-01 08:30 | NUR ---
AWAKE ALERT AND ORIENTED STATED ID NOT SLEEP LAST NITE DESPITE SEDATIVE AND PAIN MEDICATIONS ORDERED REMAIN ON ATB ORDERED WITH NO ADVERSE OR ALLERGIC REACTIONS AT TIME.
[2020-07-01] MEDS: FLUOXETINE HCL 20 MG CAPSULE PO SCH (08:43)
[2020-07-01] MEDS: FOLIC ACID 1 MG TABLET PO SCH (08:44)
[2020-07-01] MEDS: CARVEDILOL 3.125 MG TABLET PO SCH (08:45)
[2020-07-01] MEDS: TRELEGY ELLIPTA INH SCH (08:47)
[2020-07-01] MEDS: CEFTRIAXONE 1 G in IV DEXTROSE 5% 50 ML IV SCH (08:47)
[2020-07-01] MEDS: ENSURE ENLIVE (VAN) 240 ML LIQUID PO SCH ×3 (08:48→17:25)
--- NOTE | 2020-07-01 09:30 | NUR ---
PHYSICAL THERAPIST HERE TO SEE PATIENT HE REFUSED AT THIS TIME STATED HE IS TIRED AND WANTS TO SLEEP
[2020-07-01 11:55] VITALS: BP 104/65
[2020-07-01 16:08] VITALS: BP 117/63
--- NOTE | 2020-07-01 16:15 | NUR ---
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
--- NOTE | 2020-07-01 17:25 | NUR ---
PATIENT STATED FEELS MORE CALM BUT PAIN IS COMING BACK SO PATIENT MEDICATED WITH NORCO ORDERED AND WILL OBSERVE.
--- NOTE | 2020-07-01 17:49 | NUR ---
DR BILLINGSLEYIAN HERE TO SEE PATIENT WITH NO NEW ORDERS AT THIS TIME.
[2020-07-01 20:27] VITALS: BP 103/65
[2020-07-01] MEDS: Z GUARD REMEDY PASTE 57 GM TUBE TOP SCH (21:53)
[2020-07-01] MEDS: DOCUSATE SODIUM 250 MG CAPSULE PO SCH (21:53)
[2020-07-01] MEDS: ENOXAPARIN SODIUM 40 MG/0.4 ML DISP.SYRIN SQ SCH (21:53)
[2020-07-02] MEDS: HYDROCODONE/APAP 5-325MG TABLET PO PRN ×3 (00:40→14:48)
[2020-07-02] MEDS: ACETAMINOPHEN 325 MG TABLET PO PRN (03:54)
[2020-07-02 04:00] VITALS: BP 105/58
[2020-07-02] MEDS: PANTOPRAZOLE SODIUM 40 MG TABLET.DR PO SCH ×2 (06:54→06:55)
[2020-07-02 07:08] LABS: BASOPHILS % (AUTO) 0.6 % (0.0-2.0); EOSINOPHILS # (AUTO) 0.3 K/uL (0.0-0.7); EOSINOPHILS % (AUTO) 3.7 % (0.0-7.0); HEMATOCRIT 30.4 % (36.7-47.1); HEMOGLOBIN 10.2 g/dL (12.5-16.3); LYMPHOCYTES % (AUTO) 13.4 % (20.5-51.5); MEAN CORPUSCULAR HEMOGLOBIN 27.8 uug (23.8-33.4); MEAN CORPUSCULAR HGB CONC 34 g/dL (32.5-36.3); MEAN CORPUSCULAR VOLUME 82.8 fL (73.0-96.2); MONOCYTES # (AUTO) 1.1 K/uL (2.0-10.0); MONOCYTES % (AUTO) 14.2 % (0.0-11.0); NEUTROPHILS # (AUTO) 5.2 K/uL (1.8-8.9); NEUTROPHILS % (AUTO) 68.1 % (38.5-71.5); PLATELET COUNT (AUTO) 328 K/uL (152-348); RED BLOOD CELL COUNT(AUTO) 3.67 MIL/uL (4.06-5.63); WHITE BLOOD COUNT (AUTO) 7.6 K/uL (3.6-10.2)
--- NOTE | 2020-07-02 07:10 | NUR ---
Handoff with ROSY Orozco. Adam Beal RN
[2020-07-02 07:17] LABS: CREATININE 0.8 mg/dL (0.6-1.3); MAGNESIUM 1.9 mg/dL (1.8-2.4); PHOSPHOROUS 3.4 mg/dL (2.5-4.9); POTASSIUM 3.8 mmol/L (3.5-5.1)
[2020-07-02] MEDS: FOLIC ACID 1 MG TABLET PO SCH (08:38)
[2020-07-02] MEDS: CARVEDILOL 3.125 MG TABLET PO SCH (08:38)
[2020-07-02] MEDS: FLUOXETINE HCL 20 MG CAPSULE PO SCH (08:38)
[2020-07-02] MEDS: ENSURE ENLIVE (VAN) 240 ML LIQUID PO SCH ×3 (08:39→16:13)
[2020-07-02] MEDS: TRELEGY ELLIPTA INH SCH (08:39)
[2020-07-02] MEDS: Z GUARD REMEDY PASTE 57 GM TUBE TOP SCH (08:40)
[2020-07-02] MEDS: CEFTRIAXONE 1 G in IV DEXTROSE 5% 50 ML IV SCH (08:50)
[2020-07-02 11:39] VITALS: BP 141/79
--- NOTE | 2020-07-02 14:22 | NUR ---
Received pt. awake in bed. In stable condition. Continue pain management with good effect. Forgan PRN given. tolerated well. Pt. refuse CT chest scan as per CIPRIANO Anders order and aware. PT. for discharge to home. Daughter Che aware on the plan. will continue monitor
[2020-07-02 16:00] VITALS: BP 150/75
[2020-07-02 17:33] VITALS: BP_SYST 153; BP_SYST 164; BP_DIAS 65; BP_DIAS 69
--- NOTE | 2020-07-02 17:36 | NUR ---
PT. BP lying 153/69 sitting 164/65. Pt for diascharge around 8pm. supervisor bottle house cleaners by ambulance.
--- NOTE | 2020-07-02 19:05 | NUR ---
Pt. CT chest scan done. Pt. will be discharge today. compensation supervisor time 8pm via ambulance.
--- NOTE | 2020-07-02 20:10 | NUR ---
ambulance here to tow picker patient. report not received from morning shift nurse. report given to ambulance personnel. daughter on face sheet contacted regarding patient discharge. discharge paperwork and belongings sent with patient. ID band off and PIV dc'd. patient v/s stable at time of discharge. no s/s of acute distress. discharged safely with ambulance personnel.
== END 2020-07-02 20:10 | disposition home health service (06) | DRG 871 ==
LOC: ER 12:15 → TELE3 19:17 → MEDSURG3 06-28 20:05
PROVIDERS: ADMIT Internal Medicine; ATTEND Nurse Practitioner Acute Care
PROC: 0HQ0XZZ Repair Scalp Skin, External Approach (ICD-10-PCS; principal; 2020-06-26)
DX: A41.9 Sepsis, unspecified organism (principal); G92 Toxic encephalopathy; E43 Unspecified severe protein-calorie malnutrition; I50.31 Acute diastolic (congestive) heart failure; J18.9 Pneumonia, unspecified organism; N39.0 Urinary tract infection, site not specified; D68.69 Other thrombophilia; D62 Acute posthemorrhagic anemia; E22.2 Syndrome of inappropriate secretion of antidiuretic hormone; E27.40 Unspecified adrenocortical insufficiency; Z68.1 Body mass index [BMI] 19.9 or less, adult; K92.2 Gastrointestinal hemorrhage, unspecified; S01.01XA Laceration without foreign body of scalp, initial encounter; M06.9 Rheumatoid arthritis, unspecified; D50.9 Iron deficiency anemia, unspecified; E83.42 Hypomagnesemia; E87.6 Hypokalemia; F32.9 Major depressive disorder, single episode, unspecified; F41.9 Anxiety disorder, unspecified; G89.4 Chronic pain syndrome; I25.10 Atherosclerotic heart disease of native coronary artery without angina pectoris; I25.2 Old myocardial infarction; I48.0 Paroxysmal atrial fibrillation; Z87.891 Personal history of nicotine dependence; M81.0 Age-related osteoporosis without current pathological fracture; M19.90 Unspecified osteoarthritis, unspecified site; M50.30 Other cervical disc degeneration, unspecified cervical region; G93.89 Other specified disorders of brain; M65.862 Other synovitis and tenosynovitis, left lower leg; I11.0 Hypertensive heart disease with heart failure; J44.9 Chronic obstructive pulmonary disease, unspecified; R62.7 Adult failure to thrive; R29.6 Repeated falls; W19.XXXA Unspecified fall, initial encounter; G90.8 Other disorders of autonomic nervous system; Y92.013 Bedroom of single-family (private) house as the place of occurrence of the external cause; M25.462 Effusion, left knee
CPT/HCPCS: 36415; 70030-TC; 70450; 71045; 71270; 72125; 73700; 82378; 83550; 83735; 83970; 84100; 84153; 84155; 84165; 84300; 84443; 84550; 85025; 85730; 87086; 90715; 93005; 93307; 93880; A4217; A4663; G0378; J0696; J1650; J2270; J2405; J3490; J7040; J7060

== ENCOUNTER 2020-12-04 10:42 | Inpatient (IN) | payer BC ==
[~2020-12-04] VITALS: Ht 175.3 cm; Wt 63.5 kg
[~2020-12-04 10:42] MED LIST changes: +CARV3.122 PO; -CARV6.252 PO; -CLON0.5T4 PO; -FOLI0.4T2 PO; +FOLI0.4T6 PO; -HYDR-3980 PO; -METH2.5T PO
--- NOTE | 2020-12-04 11:00 | NUR ---
at bedside for assessment
[2020-12-04] MEDS ORDERED: AZITHROMYCIN 250 MG TABLET PO ONE (11:15)
[2020-12-04] MEDS ORDERED: methylPREDNISolone SOD SUCC 125 MG/2 ML VIAL IV ONE (11:15)
[2020-12-04] MEDS ORDERED: CEFTRIAXONE 1 G in IV DEXTROSE 5% 50 ML IV ONE (11:15)
[2020-12-04] MEDS ORDERED: methylPREDNISolone SOD SUCC 125 MG/2 ML VIAL ONE (11:17)
[2020-12-04] MEDS ORDERED: AZITHROMYCIN 250 MG TABLET ONE (11:17)
[2020-12-04] MEDS ORDERED: CEFTRIAXONE /D5W 50ML IVPB **ER PYXIS IV ONE (11:18)
[2020-12-04] MEDS ORDERED: SWABABLE VALVE TRANSFER SET EA MC ONE (11:21)
[2020-12-04] MEDS ORDERED: IOHEXOL 300MG/ML 100 ML INFUS..BTL ONE (11:21)
[2020-12-04] MEDS ORDERED: IV NORMAL SALINE 250 ML IV ONE (11:21)
[2020-12-04 11:24] LABS: BASOPHILS # (AUTO) 0.1 K/uL (0.0-8.0); BASOPHILS % (AUTO) 0.7 % (0.0-2.0); EOSINOPHILS # (AUTO) 0.1 K/uL (0.0-0.7); EOSINOPHILS % (AUTO) 1.4 % (0.0-7.0); HEMATOCRIT 44.4 % (36.7-47.1); HEMOGLOBIN 14.8 g/dL (12.5-16.3); LYMPHOCYTES # (AUTO) 1.2 K/uL (20.0-40.0); LYMPHOCYTES % (AUTO) 12.5 % (20.5-51.5); MEAN CORPUSCULAR HGB CONC 33 g/dL (32.5-36.3); MEAN CORPUSCULAR VOLUME 87.5 fL (73.0-96.2); MONOCYTES # (AUTO) 0.9 K/uL (2.0-10.0); MONOCYTES % (AUTO) 9.5 % (0.0-11.0); NEUTROPHILS # (AUTO) 7.1 K/uL (1.8-8.9); NEUTROPHILS % (AUTO) 75.9 % (38.5-71.5); PLATELET COUNT (AUTO) 170 K/uL (152-348); RED BLOOD CELL COUNT(AUTO) 5.08 MIL/uL (4.06-5.63); WHITE BLOOD COUNT (AUTO) 9.4 K/uL (3.6-10.2)
[2020-12-04 11:47] LABS: CREATININE 1.1 mg/dL (0.6-1.3); POTASSIUM 3.9 mmol/L (3.5-5.1)
--- NOTE | 2020-12-04 11:58 | NUR ---
no coughing noted at this time
[2020-12-04] MEDS ORDERED: PRED2.5T PO (12:01)
[2020-12-04] MEDS ORDERED: HYDR-3974 PO (12:01)
[2020-12-04 12:12] LABS: BILIRUBIN,TOTAL 0.7 mg/dL (0.2-1.0)
[2020-12-04] MEDS ORDERED: ONDANSETRON 4 MG/2 ML VIAL IV ONE (14:00)
--- NOTE | 2020-12-04 14:00 | NUR ---
patient noted coughing when consuming, MD Spence called for consult
[2020-12-04] MEDS ORDERED: ONDANSETRON 4 MG/2 ML VIAL ONE (14:14)
[2020-12-04] MEDS ORDERED: ONDANSETRON 4 MG/2 ML VIAL IV PRN (15:15)
--- NOTE | 2020-12-04 16:00 | NUR ---
report given to Charline at this time
--- NOTE | 2020-12-04 16:29 | NUR ---
Pt. admitted to [facility] , under care of Dr. Cho Belongs List completed and all belongings snt with patient
[2020-12-04] MEDS: IV D5 1/2 NS 1000 ML 1,000 ML IV PRN (16:37)
[2020-12-04 16:52] VITALS: BP 145/92
--- NOTE | 2020-12-04 18:45 | NUR ---
Admitted 80 y.o. male with dx of esophageal obstruction. Pt AAOx4. RENO-SPARKS. NPO at this time. On 2L o2 w/ spo2 >92%. No SOB noted. Pt educated to keep head of the bed elevated. Blanchable redness on coccyx and bilateral buttox. Continent x2. All needs anticipated and met. Plan: AM labs, NPO, EGD, o2 therapy, pain management
[2020-12-04] MEDS ORDERED: KETOROLAC TROMETHAMINE 15 MG INJ IVP PRN (19:00)
[2020-12-04] MEDS: MORPHINE SULFATE 2 MG/1 ML DISP.SYRIN IV PRN ×2 (19:11→22:40)
[2020-12-04 20:05] VITALS: BP 137/91
[2020-12-04 20:10] VITALS: BP 137/91
[2020-12-05] MEDS: MORPHINE SULFATE 2 MG/1 ML DISP.SYRIN IV PRN (03:04)
[2020-12-05 04:00] VITALS: BP 128/70
[2020-12-05 06:14] LABS: HEMATOCRIT 40.2 % (36.7-47.1); HEMOGLOBIN 13.1 g/dL (12.5-16.3); LYMPHOCYTES # (AUTO) 0.9 K/uL (20.0-40.0); LYMPHOCYTES % (AUTO) 7.4 % (20.5-51.5); MEAN CORPUSCULAR HEMOGLOBIN 28.5 uug (23.8-33.4); MEAN CORPUSCULAR HGB CONC 33 g/dL (32.5-36.3); MEAN CORPUSCULAR VOLUME 87.7 fL (73.0-96.2); MONOCYTES # (AUTO) 0.7 K/uL (2.0-10.0); MONOCYTES % (AUTO) 5.9 % (0.0-11.0); NEUTROPHILS % (AUTO) 86.7 % (38.5-71.5); PLATELET COUNT (AUTO) 165 K/uL (152-348); RED BLOOD CELL COUNT(AUTO) 4.58 MIL/uL (4.06-5.63); WHITE BLOOD COUNT (AUTO) 11.6 K/uL (3.6-10.2)
[2020-12-05 06:30] LABS: MAGNESIUM 2.1 mg/dL (1.8-2.4); PHOSPHOROUS 4.4 mg/dL (2.5-4.9); POTASSIUM 4.1 mmol/L (3.5-5.1)
[2020-12-05 06:36] LABS: THYROID STIMULATING HORMONE 0.352 mIU/mL (0.358-3.740)
[2020-12-05] MEDS: IV D5 1/2 NS 1000 ML 1,000 ML IV PRN (07:03)
--- NOTE | 2020-12-05 11:33 | NUR ---
pt went to gi lab for the egd in stable condition
[2020-12-05 11:38] VITALS: BP 127/72
[2020-12-05] MEDS ORDERED: ROCURONIUM BROMIDE 50 MG/5 ML VIAL ONE (12:22)
[2020-12-05] MEDS ORDERED: OMEP20TA20 PO (13:50)
[2020-12-05 16:05] VITALS: BP 132/67
--- NOTE | 2020-12-05 18:04 | NUR ---
dc orders received noted and carried out,dc instruction and education given to the pt.dc heplock per md orders,pt left the facility via ambulances in stable condition
[2020-12-05] MEDS ORDERED: SIMETHICONE 40 MG/0.6 ML, 30ML BOTTLE MC ONE (18:09)
[2020-12-05] MEDS ORDERED: PROPOFOL 200 MG/20 ML BOTTLE IV ONE (18:09)
[2020-12-05] MEDS ORDERED: SUCCINYLCHOLINE CHLORIDE 200 MG/10 ML VIAL IV ONE (18:09)
[2020-12-05] MEDS ORDERED: SEVOFLURANE 250 ML BOTTLE IH ONE (18:09)
== END 2020-12-05 18:10 | disposition home or self-care (01) | DRG 392 ==
LOC: ER 10:44 → MEDSURG3 16:09
PROC: 0D758DZ Dilation of Esophagus with Intraluminal Device, Via Natural or Artificial Opening Endoscopic (ICD-10-PCS; principal; 2020-12-05)
DX: K22.2 Esophageal obstruction (principal); D68.69 Other thrombophilia; E44.1 Mild protein-calorie malnutrition; T18.128A Food in esophagus causing other injury, initial encounter; M06.9 Rheumatoid arthritis, unspecified; I48.0 Paroxysmal atrial fibrillation; G93.89 Other specified disorders of brain; E78.5 Hyperlipidemia, unspecified; G89.4 Chronic pain syndrome; I25.10 Atherosclerotic heart disease of native coronary artery without angina pectoris; I25.2 Old myocardial infarction; Z91.81 History of falling; Z87.891 Personal history of nicotine dependence; M81.0 Age-related osteoporosis without current pathological fracture; M50.30 Other cervical disc degeneration, unspecified cervical region; F32.9 Major depressive disorder, single episode, unspecified; K44.9 Diaphragmatic hernia without obstruction or gangrene; I10 Essential (primary) hypertension; X58.XXXA Exposure to other specified factors, initial encounter; Y93.9 Activity, unspecified; Y92.89 Other specified places as the place of occurrence of the external cause; M25.462 Effusion, left knee; K21.00 Gastro-esophageal reflux disease with esophagitis, without bleeding; Z20.822 Contact with and (suspected) exposure to COVID-19; Z99.81 Dependence on supplemental oxygen
CPT/HCPCS: 36415; 70030-TC; 70491; 71260; 83615; 83735; 84100; 84443; 85025; 85730; 86140; 93005; A4217; A4663; G0378; J0330; J0696; J1885; J2270; J2405; J2930; J3490; J7050; Q0144; Q9967

== ENCOUNTER 2022-07-31 10:16 | Inpatient (IN) | payer BC, MEDICARE ==
[~2022-07-31] VITALS: Ht 172.7 cm; Wt 63.5 kg
[2022-07-31 04:30] VITALS: BP 103/63
[~2022-07-31 10:16] MED LIST changes: +HYDR-3974 PO; -MEGE400O4 PO; +OMEP20TA20 PO; +PRED2.5T PO; -RAMI10CA69 PO
[2022-07-31] MEDS ORDERED: ACETAMINOPHEN 325 MG TABLET PO ONE (10:30)
[2022-07-31] MEDS ORDERED: VANCOMYCIN 1G/D5W 200 ML PIGGYBACK IV ONE (10:30)
[2022-07-31] MEDS ORDERED: IV NORMAL SALINE 1000 ML BAG IV ONE ×2 (10:30→11:30)
[2022-07-31] MEDS ORDERED: PIPERACILLIN SODIUM/TAZOBACTAM 3.375 G in IV DEXTROSE 5% 50 ML IV ONE (10:30)
[2022-07-31] MEDS ORDERED: HYDR-3972 PO (10:48)
[2022-07-31] MEDS ORDERED: TRAZ-257 PO (10:48)
[2022-07-31 11:14] LABS: MEAN CORPUSCULAR HEMOGLOBIN 29.8 uug (23.8-33.4); MEAN CORPUSCULAR VOLUME 89.4 fL (73.0-96.2); PLATELET COUNT (AUTO) 201 K/uL (152-348)
[2022-07-31] MEDS ORDERED: ACETAMINOPHEN 325 MG TABLET ONE (11:19)
[2022-07-31] MEDS ORDERED: VANCOMYCIN IV 200 ML ONE (11:19)
[2022-07-31] MEDS ORDERED: PIPERACILLIN/TAZOBACTAM/D5W 50 ML IV ONE (11:19)
[2022-07-31 11:29] LABS: ALANINE AMINOTRANSFERASE 25 U/L (16-63); ALKALINE PHOSPHATASE 69 U/L (50-136); ASPARTATE AMINOTRANSFERASE 11 U/L (15-37); BILIRUBIN,DIRECT 0.3 mg/dL (0.0-0.2); BILIRUBIN,TOTAL 0.7 mg/dL (0.2-1.0); CARBON DIOXIDE 32 mmol/L (21-32); CHLORIDE 100 mmol/L (98-107); CREATININE 0.9 mg/dL (0.6-1.3); GLUCOSE 84 mg/dL (74-106); POTASSIUM 4.3 mmol/L (3.5-5.1); UREA NITROGEN, BLOOD 17 mg/dL (7-18)
[2022-07-31 13:11] LABS: *BILIRUBIN,URIN NEGATIVE (NEGATIVE); *BLOOD, URINE 1+ (NEGATIVE); *CLARITY,URINE CLEAR (CLEAR); *COLOR,URINE YELLOW (YELLOW); *KETONES,URINE NEGATIVE (NEGATIVE); LEUKOCYTE ESTERASE ,URINE NEGATIVE (NEGATIVE); NITRITE, URINE NEGATIVE (NEGATIVE); UGLUCOSE NEGATIVE (NEGATIVE)
[2022-07-31 16:08] VITALS: BP 103/63
[2022-07-31] MEDS ORDERED: ONDANSETRON 4 MG/2 ML VIAL IV PRN (16:45)
[2022-07-31] MEDS ORDERED: IV LACTATED RINGERS SOLUTION 1,000 ML IV PRN (16:45)
[2022-07-31] MEDS ORDERED: REMEDY ESSENTIAL ZINC PASTE 113 GM TP PRN (16:45)
[2022-07-31] MEDS: CARVEDILOL 3.125 MG TABLET PO SCH (18:01)
[2022-07-31] MEDS: ACETAMINOPHEN 325 MG TABLET PO PRN (18:16)
[2022-07-31] MEDS: CEFTRIAXONE 1 G in IV DEXTROSE 5% 50 ML IV SCH (18:16)
[2022-07-31 19:53] LABS: BACTERIA,URINE NONE SEEN /HPF (NONE SEEN); SQUAMOUS EPITHELIAL CELL,UR FEW /HPF (NONE SEEN); WBC,URINE 0-3 /HPF (0-3)
[2022-07-31 19:54] LABS: MUCUS,URINE FEW /LPF (0-FEW)
[2022-07-31 20:00] VITALS: BP 105/65
[2022-07-31] MEDS: ATORVASTATIN 40 MG TABLET PO SCH (20:30)
[2022-07-31] MEDS: DOXYCYCLINE HYCLATE IV 100 MG in IV DEXTROSE 5% 100 ML IV SCH (20:30)
[2022-07-31] MEDS: IV D5 1/2 NS 1000 ML 1,000 ML IV PRN (20:34)
[2022-07-31] MEDS: REMEDY ESSENTIAL ZINC PASTE 113 GM TOP SCH (20:45)
[2022-07-31] MEDS: VITAMIN E CREAM 56.7 GM JAR TP SCH (21:00)
[2022-08-01 00:52] VITALS: BP 122/70
[2022-08-01] MEDS: ACETAMINOPHEN 325 MG TABLET PO PRN (03:35)
[2022-08-01 04:00] VITALS: BP 127/72
[2022-08-01 05:33] LABS: HEMATOCRIT 33.6 % (36.7-47.1); MEAN CORPUSCULAR HEMOGLOBIN 29.6 uug (23.8-33.4); MEAN CORPUSCULAR VOLUME 88.5 fL (73.0-96.2); PLATELET COUNT (AUTO) 165 K/uL (152-348)
[2022-08-01 05:47] LABS: CREATININE 0.8 mg/dL (0.6-1.3); MAGNESIUM 1.7 mg/dL (1.8-2.4); PHOSPHOROUS 3.2 mg/dL (2.5-4.9); POTASSIUM 3.6 mmol/L (3.5-5.1)
[2022-08-01] MEDS: VITAMIN E CREAM 56.7 GM JAR TP SCH ×2 (09:00→21:00)
[2022-08-01] MEDS: predniSONE 10 MG TABLET PO SCH (09:38)
[2022-08-01] MEDS: FOLIC ACID 1 MG TABLET PO SCH (09:38)
[2022-08-01] MEDS: DOXYCYCLINE HYCLATE IV 100 MG in IV DEXTROSE 5% 100 ML IV SCH ×2 (09:38→20:59)
[2022-08-01] MEDS: FLUOXETINE HCL 20 MG CAPSULE PO SCH (09:39)
[2022-08-01] MEDS: CARVEDILOL 3.125 MG TABLET PO SCH ×2 (09:43→16:12)
[2022-08-01] MEDS: REMEDY ESSENTIAL ZINC PASTE 113 GM TOP SCH ×2 (09:46→21:00)
[2022-08-01] MEDS ORDERED: MAGNESIUM OXIDE 400 MG TABLET PO ONE (10:00)
[2022-08-01 11:44] VITALS: BP 139/75
[2022-08-01 16:00] VITALS: BP 138/81
[2022-08-01] MEDS: IV D5 1/2 NS 1000 ML 1,000 ML IV PRN (16:12)
[2022-08-01] MEDS: CEFTRIAXONE 1 G in IV DEXTROSE 5% 50 ML IV SCH (17:33)
[2022-08-01 20:00] VITALS: BP 143/75
[2022-08-01] MEDS: TRAZODONE 100 MG TABLET PO SCH (20:59)
[2022-08-01] MEDS: ATORVASTATIN 40 MG TABLET PO SCH (21:00)
[2022-08-02 00:52] VITALS: BP 146/71
[2022-08-02 04:00] VITALS: BP 137/75
[2022-08-02 06:51] LABS: HEMATOCRIT 33.6 % (36.7-47.1); MEAN CORPUSCULAR HEMOGLOBIN 30.4 uug (23.8-33.4); MEAN CORPUSCULAR VOLUME 88.3 fL (73.0-96.2); PLATELET COUNT (AUTO) 192 K/uL (152-348)
[2022-08-02 07:04] LABS: CREATININE 0.8 mg/dL (0.6-1.3); MAGNESIUM 1.6 mg/dL (1.8-2.4); PHOSPHOROUS 3.3 mg/dL (2.5-4.9); POTASSIUM 3.7 mmol/L (3.5-5.1)
[2022-08-02] MEDS: DOXYCYCLINE HYCLATE 100 MG TABLET PO SCH ×2 (08:58→20:59)
[2022-08-02] MEDS: FLUOXETINE HCL 20 MG CAPSULE PO SCH (08:58)
[2022-08-02] MEDS: predniSONE 10 MG TABLET PO SCH (08:58)
[2022-08-02] MEDS: FOLIC ACID 1 MG TABLET PO SCH (08:58)
[2022-08-02] MEDS: IV D5 1/2 NS 1000 ML 1,000 ML IV PRN (09:05)
[2022-08-02] MEDS: REMEDY ESSENTIAL ZINC PASTE 113 GM TOP SCH ×2 (09:07→21:07)
[2022-08-02] MEDS: CARVEDILOL 3.125 MG TABLET PO SCH ×2 (09:07→16:32)
[2022-08-02] MEDS: MAGNESIUM SULFATE/D5W 100 ML IV SCH ×2 (09:34→11:09)
[2022-08-02] MEDS: VITAMIN E CREAM 56.7 GM JAR TP SCH ×2 (09:49→21:08)
[2022-08-02 12:46] VITALS: BP 112/64
[2022-08-02] MEDS: ENSURE ENLIVE (VAN) 240 ML LIQUID PO SCH ×2 (13:30→16:33)
[2022-08-02] MEDS: PROTEIN SUPPLEMENT (PROSTAT) 30 ML LIQUID PO SCH (13:30)
[2022-08-02 16:05] VITALS: BP 123/63
[2022-08-02] MEDS: CEFTRIAXONE 1 G in IV DEXTROSE 5% 50 ML IV SCH (17:45)
[2022-08-02] MEDS: ATORVASTATIN 40 MG TABLET PO SCH (20:59)
[2022-08-02] MEDS: TRAZODONE 100 MG TABLET PO SCH (20:59)
[2022-08-02] MEDS: HYDROCODONE/APAP 10-325 MG TABLET PO PRN (21:07)
[2022-08-02 21:34] VITALS: BP 108/66
[2022-08-03] VITALS: BP 110/72
[2022-08-03] MEDS: IV D5 1/2 NS 1000 ML 1,000 ML IV PRN ×2 (03:37→18:00)
[2022-08-03 04:00] VITALS: BP 145/82
[2022-08-03 06:08] LABS: HEMATOCRIT 33.2 % (36.7-47.1); MEAN CORPUSCULAR HEMOGLOBIN 29.3 uug (23.8-33.4); MEAN CORPUSCULAR VOLUME 89.1 fL (73.0-96.2); PLATELET COUNT (AUTO) 208 K/uL (152-348)
[2022-08-03 06:29] LABS: CARBON DIOXIDE 32 mmol/L (21-32); CHLORIDE 103 mmol/L (98-107); CREATININE 0.8 mg/dL (0.6-1.3); GLUCOSE 83 mg/dL (74-106); PHOSPHOROUS 4.2 mg/dL (2.5-4.9); POTASSIUM 3.8 mmol/L (3.5-5.1); UREA NITROGEN, BLOOD 12 mg/dL (7-18)
[2022-08-03] MEDS: ENSURE ENLIVE (VAN) 240 ML LIQUID PO SCH ×2 (08:21→17:15)
[2022-08-03] MEDS: PROTEIN SUPPLEMENT (PROSTAT) 30 ML LIQUID PO SCH (08:21)
[2022-08-03] MEDS: predniSONE 10 MG TABLET PO SCH (09:00)
[2022-08-03] MEDS: CARVEDILOL 3.125 MG TABLET PO SCH ×2 (09:01→17:15)
[2022-08-03] MEDS: FOLIC ACID 1 MG TABLET PO SCH (09:01)
[2022-08-03] MEDS: FLUOXETINE HCL 20 MG CAPSULE PO SCH (09:01)
[2022-08-03] MEDS: DOXYCYCLINE HYCLATE 100 MG TABLET PO SCH ×2 (09:01→20:58)
[2022-08-03] MEDS: VITAMIN E CREAM 56.7 GM JAR TP SCH ×2 (09:02→20:58)
[2022-08-03] MEDS: REMEDY ESSENTIAL ZINC PASTE 113 GM TOP SCH ×2 (09:02→20:58)
[2022-08-03 11:35] VITALS: BP 123/69
[2022-08-03] MEDS: HYDROCODONE/APAP 10-325 MG TABLET PO PRN ×2 (11:39→21:02)
[2022-08-03 16:00] VITALS: BP 124/72
[2022-08-03] MEDS: CEFTRIAXONE 1 G in IV DEXTROSE 5% 50 ML IV SCH (17:53)
[2022-08-03 20:00] VITALS: BP 135/76
[2022-08-03] MEDS: TRAZODONE 100 MG TABLET PO SCH (20:58)
[2022-08-04] VITALS: BP 133/75
[2022-08-04 04:00] VITALS: BP 136/80
[2022-08-04 07:31] LABS: MEAN CORPUSCULAR HEMOGLOBIN 29.6 uug (23.8-33.4); MEAN CORPUSCULAR VOLUME 88.5 fL (73.0-96.2); PLATELET COUNT (AUTO) 229 K/uL (152-348)
[2022-08-04 08:16] LABS: MAGNESIUM 1.8 mg/dL (1.8-2.4); PHOSPHOROUS 4.2 mg/dL (2.5-4.9)
[2022-08-04 08:19] LABS: BILIRUBIN,TOTAL 0.2 mg/dL (0.2-1.0); CREATININE 0.7 mg/dL (0.6-1.3); TOTAL PROTEIN, SERUM 5.5 g/dL (6.4-8.2)
[2022-08-04] MEDS: PROTEIN SUPPLEMENT (PROSTAT) 30 ML LIQUID PO SCH (08:25)
[2022-08-04] MEDS: ENSURE ENLIVE (VAN) 240 ML LIQUID PO SCH ×2 (08:25→17:26)
[2022-08-04] MEDS: IV D5 1/2 NS 1000 ML 1,000 ML IV PRN (09:02)
[2022-08-04] MEDS: predniSONE 10 MG TABLET PO SCH (09:08)
[2022-08-04] MEDS: DOXYCYCLINE HYCLATE 100 MG TABLET PO SCH ×2 (09:08→20:48)
[2022-08-04] MEDS: FOLIC ACID 1 MG TABLET PO SCH (09:08)
[2022-08-04] MEDS: HYDROCODONE/APAP 10-325 MG TABLET PO PRN ×2 (09:08→20:04)
[2022-08-04] MEDS: FLUOXETINE HCL 20 MG CAPSULE PO SCH (09:08)
[2022-08-04] MEDS: REMEDY ESSENTIAL ZINC PASTE 113 GM TOP SCH ×2 (09:09→20:50)
[2022-08-04] MEDS: CARVEDILOL 3.125 MG TABLET PO SCH ×2 (09:09→17:25)
[2022-08-04] MEDS: VITAMIN E CREAM 56.7 GM JAR TP SCH ×2 (09:10→20:49)
[2022-08-04 11:15] LABS: THYROID STIMULATING HORMONE 1.581 mIU/mL (0.358-3.740)
[2022-08-04 11:38] VITALS: BP 132/73
[2022-08-04 15:54] VITALS: BP 125/75
[2022-08-04] MEDS: CEFTRIAXONE 1 G in IV DEXTROSE 5% 50 ML IV SCH (17:32)
[2022-08-04 20:00] VITALS: BP 136/76
[2022-08-04] MEDS: TRAZODONE 100 MG TABLET PO SCH (20:48)
[2022-08-05] VITALS: BP 100/53
[2022-08-05 04:00] VITALS: BP 115/67
[2022-08-05] MEDS: HYDROCODONE/APAP 10-325 MG TABLET PO PRN ×2 (05:22→14:04)
[2022-08-05] MEDS: PROTEIN SUPPLEMENT (PROSTAT) 30 ML LIQUID PO SCH (08:00)
[2022-08-05] MEDS: ENSURE ENLIVE (VAN) 240 ML LIQUID PO SCH (08:00)
[2022-08-05] MEDS: VITAMIN E CREAM 56.7 GM JAR TP SCH (09:00)
[2022-08-05] MEDS: FLUOXETINE HCL 20 MG CAPSULE PO SCH (09:10)
[2022-08-05] MEDS: DOXYCYCLINE HYCLATE 100 MG TABLET PO SCH (09:10)
[2022-08-05] MEDS: predniSONE 10 MG TABLET PO SCH (09:10)
[2022-08-05] MEDS: FOLIC ACID 1 MG TABLET PO SCH (09:11)
[2022-08-05] MEDS: CARVEDILOL 3.125 MG TABLET PO SCH (09:11)
[2022-08-05] MEDS: REMEDY ESSENTIAL ZINC PASTE 113 GM TOP SCH (09:12)
[2022-08-05 11:55] VITALS: BP 126/86
[2022-08-05] MEDS ORDERED: INFLUENZA VACCINE 2022-2023 0.5 ML DISP.SYRIN IM ONE (12:00)
[2022-08-05] MEDS ORDERED: Lactose-Free Food PO (13:10)
[2022-08-05] MEDS ORDERED: VITAMIN E TP (13:10)
[2022-08-05] MEDS ORDERED: DOXY100T2 PO (13:10)
[2022-08-05] MEDS ORDERED: PROT30LI PO (13:10)
[2022-08-05] MEDS ORDERED: ACET325T53 PO (13:10)
[2022-08-05] MEDS ORDERED: MENT113O TP (13:10)
[2022-08-05] MEDS ORDERED: ALBU18HF2 INH (13:10)
== END 2022-08-05 14:25 | DRG 177 ==
LOC: ER 10:16 → TELE3 14:57
PROVIDERS: ADMIT Nurse Practitioner Acute Care; ATTEND Internal Medicine
DX: J69.0 Pneumonitis due to inhalation of food and vomit (principal); E43 Unspecified severe protein-calorie malnutrition; G92.8 Other toxic encephalopathy; I50.31 Acute diastolic (congestive) heart failure; D68.59 Other primary thrombophilia; J44.0 Chronic obstructive pulmonary disease with (acute) lower respiratory infection; E78.5 Hyperlipidemia, unspecified; F32.A Depression, unspecified; I25.10 Atherosclerotic heart disease of native coronary artery without angina pectoris; K21.9 Gastro-esophageal reflux disease without esophagitis; Z87.891 Personal history of nicotine dependence; M06.9 Rheumatoid arthritis, unspecified; I25.2 Old myocardial infarction; Z20.822 Contact with and (suspected) exposure to COVID-19; D50.9 Iron deficiency anemia, unspecified; Z74.09 Other reduced mobility; I11.0 Hypertensive heart disease with heart failure; I48.0 Paroxysmal atrial fibrillation; Z91.81 History of falling; M81.0 Age-related osteoporosis without current pathological fracture; G93.89 Other specified disorders of brain; F41.9 Anxiety disorder, unspecified
CPT/HCPCS: 36415; 71045; 83550; 83605; 83735; 84100; 84443; 84484; 85025; 85730; 87040; 87400; 90686; 93005; 93307; A4663; C1758; G0378; J0696; J2543; J3370; J3475; J3490; J7040; J7512; U0003

== ENCOUNTER 2023-03-16 23:34 | Inpatient (IN) | payer BC ==
[~2023-03-16] VITALS: Ht 185.4 cm; Wt 77.1 kg
[~2023-03-16 23:34] MED LIST changes: +ACET325T53 PO; +ALBU18HF2 INH; +DOXY100T2 PO; +HYDR-3972 PO; -HYDR-3974 PO; +Lactose-Free Food PO; +MENT113O TP; +PROT30LI PO; -ROSU10TA2 PO; +TRAZ-257 PO; +VITAMIN E TP
[2023-03-17 00:25] LABS: HEMATOCRIT 38.8 % (36.7-47.1); MEAN CORPUSCULAR VOLUME 85.8 fL (73.0-96.2); PLATELET COUNT (AUTO) 270 K/uL (152-348)
[2023-03-17 00:32] LABS: CARBON DIOXIDE 34 mmol/L (21-32); CHLORIDE 100 mmol/L (98-107); CREATININE 0.8 mg/dL (0.6-1.3); POTASSIUM 4.2 mmol/L (3.5-5.1); UREA NITROGEN, BLOOD 23 mg/dL (7-18)
[2023-03-17 00:39] LABS: SITE, VBG RIGHT RADIAL; VENT MODE, VBG Nasal Cannula
[2023-03-17 00:46] LABS: ALANINE AMINOTRANSFERASE 12 U/L (16-63); ALKALINE PHOSPHATASE 107 U/L (50-136); ASPARTATE AMINOTRANSFERASE 15 U/L (15-37); BILIRUBIN,DIRECT 0.2 mg/dL (0.0-0.2); BILIRUBIN,TOTAL 0.3 mg/dL (0.2-1.0); TOTAL PROTEIN, SERUM 6.8 g/dL (6.4-8.2)
[2023-03-17] MEDS ORDERED: MORPHINE SULFATE 2 MG/1 ML DISP.SYRIN IV ONE ×2 (01:00→02:30)
[2023-03-17] MEDS ORDERED: FUROSEMIDE 20 MG/2 ML VIAL IV ONE (01:15)
[2023-03-17] MEDS ORDERED: FUROSEMIDE 20 MG/2 ML VIAL ONE (01:33)
[2023-03-17] MEDS ORDERED: levoFLOXacin 750 MG/D5W 150 ML PIGGYBACK IV ONE (01:45)
[2023-03-17] MEDS ORDERED: levoFLOXacin 750MG/D5W 150 ML IV ONE (03:01)
[2023-03-17] MEDS ORDERED: IV NORMAL SALINE 250 ML IV ONE (03:25)
[2023-03-17] MEDS ORDERED: IOHEXOL 350 100 ML INFUS..BTL ONE (03:25)
[2023-03-17] MEDS ORDERED: SWABABLE VALVE TRANSFER SET EA MC ONE (03:25)
[2023-03-17] MEDS ORDERED: ACETAMINOPHEN 325 MG TABLET PO PRN (04:45)
[2023-03-17] MEDS ORDERED: ONDANSETRON 4 MG/2 ML VIAL IV PRN (04:45)
[2023-03-17] MEDS ORDERED: REMEDY ESSENTIAL ZINC PASTE 113 GM TP PRN (04:45)
[2023-03-17] MEDS ORDERED: MAGNESIUM HYDROXIDE 30 ML LIQUID UDC PO PRN (04:45)
[2023-03-17] MEDS ORDERED: ALBUTEROL SULFATE 2.5 MG/3 ML NEBU NEB PRN (04:45)
[2023-03-17] MEDS ORDERED: IPRATROPIUM BROMIDE 0.5 MG/2.5 ML NEBU NEB PRN (04:45)
[2023-03-17] MEDS ORDERED: CEFEPIME HCL 1 G in IV DEXTROSE 5% 50 ML IV SCH (06:00)
[2023-03-17] MEDS: PANTOPRAZOLE SODIUM 40 MG TABLET.DR PO SCH (07:00)
[2023-03-17] MEDS ORDERED: CEFEPIME HCL 1 G VIAL ONE (07:10)
--- NOTE | 2023-03-17 07:55 | NUR ---
Received report from Zeinab (RN). Pt seen by for bedside eval. Was informed from Zeinab that Pt is DNR. Safety measures in place. Will continue to monitor.
--- NOTE | 2023-03-17 08:25 | NUR ---
Increased Pt's O2 to 4L NC. SpO2 is 94%. Safety measures in place. Will continue to monitor.
--- NOTE | 2023-03-17 08:47 | NUR ---
Pt currently getting echocardiogram right now. Safety measures in place. Will continue to monitor.
[2023-03-17] MEDS ORDERED: MORPHINE SULFATE 2 MG/1 ML DISP.SYRIN ONE ×2 (09:30→16:04)
[2023-03-17] MEDS: MORPHINE SULFATE 2 MG/1 ML DISP.SYRIN IV PRN ×2 (09:43→16:09)
[2023-03-17] MEDS ORDERED: ALBUTEROL SULFATE 8 GM HFA.AER.AD INH PRN (11:30)
[2023-03-17] MEDS ORDERED: HYDROCODONE/APAP 5-325MG TABLET ONE (11:42)
[2023-03-17] MEDS ORDERED: VANCOMYCIN IV 1,250 MG in IV DEXTROSE 5% 250 ML IV ONE (12:00)
[2023-03-17] MEDS: HYDROCORTISONE SOD SUCCINATE 100 MG/2 ML VIAL IV SCH ×2 (13:58→23:16)
[2023-03-17] MEDS ORDERED: HYDROCORTISONE SOD SUCCINATE 100 MG/2 ML VIAL IV ONE (16:03)
[2023-03-17] MEDS: FLUOXETINE HCL 20 MG CAPSULE PO SCH (17:00)
[2023-03-17] MEDS: CEFEPIME HCL 1 G in IV DEXTROSE 5% 50 ML IV SCH (17:02)
--- NOTE | 2023-03-17 17:40 | NUR ---
Gave report to Evelia (ROSY).
[2023-03-17] MEDS: CARVEDILOL 3.125 MG TABLET PO SCH (18:00)
--- NOTE | 2023-03-17 18:47 | NUR ---
Pt admitted to Tele Rm 309. Pt transferred to room safely and in safe condition. all belongings are with patient. Paperwork given to community service director.
--- NOTE | 2023-03-17 18:49 | NUR ---
ADMITTED [facility] VIA ER AN 82 YO MALE C/O CHEST PAIN, SOB, INCREASING LETHARGY, ADM DX ASPIRATION PNEUMONIA. AWAKE ALERT AND ABLE TO ANSWER SIMPLE QUESTIONS APPROPRIATELY. ON 4 L NC SATURATING 96%, SR 84 ON MONITOR. ENDORSED TO PHONE SCREENER
[2023-03-17 19:03] VITALS: BP 106/69; TEMP 98.8; O2SAT 97
[2023-03-17 20:00] VITALS: BP 119/75; TEMP 97.7; O2SAT 97
[2023-03-18] VITALS (8 sets, daily range): BP systolic 115–127; BP diastolic 67–77; TEMP 97.5–98.5; O2SAT 95–98
[2023-03-18] MEDS: MORPHINE SULFATE 2 MG/1 ML DISP.SYRIN IV PRN (00:43)
[2023-03-18] MEDS: CEFEPIME HCL 1 G in IV DEXTROSE 5% 50 ML IV SCH ×3 (01:02→16:13)
[2023-03-18] MEDS: TEMAZEPAM 15 MG CAPSULE PO PRN (02:36)
[2023-03-18] MEDS: VANCOMYCIN IV 1,250 MG in IV DEXTROSE 5% 250 ML IV SCH ×2 (04:00→19:57)
[2023-03-18] MEDS: PANTOPRAZOLE SODIUM 40 MG TABLET.DR PO SCH (06:50)
--- NOTE | 2023-03-18 07:05 | NUR ---
Slept intermittently throughout the night, denies chest pain. HOB kept elevated. Sinus rhythm on tele with HR 87bmp. Needs assessed and attended to.
[2023-03-18 07:08] LABS: MEAN CORPUSCULAR HEMOGLOBIN 27.6 uug (23.8-33.4); MEAN CORPUSCULAR VOLUME 85.2 fL (73.0-96.2); PLATELET COUNT (AUTO) 271 K/uL (152-348)
[2023-03-18 07:27] LABS: CARBON DIOXIDE 30 mmol/L (21-32); CHLORIDE 99 mmol/L (98-107); CHOLESTEROL 139 mg/dL (<200); CREATININE 0.8 mg/dL (0.6-1.3); HDL CHOLESTEROL 44 mg/dL (40-60); POTASSIUM 4.3 mmol/L (3.5-5.1); TRIGLYCERIDES 59 MG/DL (30-150); UREA NITROGEN, BLOOD 16 mg/dL (7-18)
[2023-03-18 07:38] LABS: THYROID STIMULATING HORMONE 0.389 mIU/mL (0.358-3.740)
--- NOTE | 2023-03-18 08:00 | NUR ---
AWAKE ALERT AND VERBALLY RESPONSIVE, RESTING COMFORTABLY DURING ROUNDS. NO SIGNS OF ACUTE PAIN. CONTINUE WITH PAIN MGT. ORDERED
[2023-03-18] MEDS: FLUOXETINE HCL 20 MG CAPSULE PO SCH ×2 (08:59→16:13)
[2023-03-18] MEDS: HYDROCORTISONE SOD SUCCINATE 100 MG/2 ML VIAL IV SCH ×2 (08:59→21:24)
[2023-03-18] MEDS ORDERED: predniSONE 2.5 MG TABLET PO SCH (09:00)
[2023-03-18] MEDS ORDERED: predniSONE 10 MG TABLET PO SCH (09:00)
[2023-03-18] MEDS: CARVEDILOL 3.125 MG TABLET PO SCH ×2 (09:06→16:35)
[2023-03-18] MEDS ORDERED: TRAZ150T75 PO (10:07)
[2023-03-18] MEDS ORDERED: FOLIC ACID 0.4 MG TABLET PO SCH (12:00)
--- NOTE | 2023-03-18 12:30 | NUR ---
seen by hospitalist for follow-up with orders. continue current tx plan as ordered..
--- NOTE | 2023-03-18 13:23 | NUR ---
seen by wound nurse for wound care hydrogel and Mepilex applied to sacral area. Advised to turn from side to side
--- NOTE | 2023-03-18 16:50 | NUR ---
CRISTHIAN Clinical Note: CRISTHIAN requested for a consult by Jessica director of medical floor regarding patient needing evaluation for fall and multiple rib fractures. SW entered the Pts. room at 11:00am. Pt was A&Ox4, appeared with dysphoric mood, and flat affect. This SW began to ask the Pt. questions and Pt. stated, I dont remember I have a headache" "May you come by later; I don't feel like speaking. This SW was given permission to speak to Pts daughter Jaci [phone] and Son Ramón also known as Chaitanya [phone]. SW noted contact [phone] on facesheet for Pts son Ramón (Chaitanya) is no longer valid. SW called Pts daughter Jaci to receive her brother Ramón Tillman) new contact. Jaci answered and provided Pts D.O.B for verification. SW called Ramón Tillman) at [phone]. Ramón Tillman) answered and confirmed Pts D.O.B and address for verification. SW asked open-ended questions regarding Pts fall incident and multiple rib fractures and Ramón Tillman) stated Pt fell on March 02 and when Ramón Tillman) attempted to pick him up from the ground he must have picked him up wrong and/or to fast. Ramón Tillman) also mentioned he failed to call 911. Pt presented in ED on 03/17/23 in regarding another chief compliant and was admitted into Tele. Ramón Tillman) mentioned patient has a walker and has recently been declining in his health and all ADLs. Ramón Tillman) also stated Pt. is with [facility]. CRISTHIAN concluded conversation with Ramón Tillman) mentioning he spoke with Pts CM (did not disclose name) and there was discussion of Pt. going to Skilled Nurse Facility upon Discharge. CRISTHIAN called ERIK Campbell [phone] to discuss DC plans. ERIK Campbell further mentioned plans are to DC Pt. to Skilled Nurse Facility and placement is in process. ERIK Campbell mentioned both Pts Deborah Beatty and Son Ramón Tillman) are agreeable to Skilled Nurse Facility placement. Due to Pts fall incident causing multiple rib fractures occurring on 03/02/23 and Pts son Ramón Tillman) failing to call 911. This SW filed APS report for caregiver neglect and self-neglect. APS intake # [id number]. DC Plan: SW will continue to follow up, provide emotional support, and guidance as needed. CM and familys plan is for Pt. to be discharged to Skilled Nurse Facility. Addendum: 03/18/23 at 1701 by KIM MORROW CRISTHIAN Clinical Note: CRISTHIAN requested for a consult by Jessica director of medical floor regarding patient needing evaluation for fall and multiple rib fractures. CRISTHIAN entered the Pts. room at 11:00am. Pt is 82 White Male, Pt was A&Ox4, appeared with dysphoric mood, and flat affect. This CRISTHIAN began to ask the Pt. questions and Pt. stated, I dont remember I have a headache" "May you come by later; I don't feel like speaking. This SW was given permission to speak to Pts daughter Jaci [phone] and Son Ramón also known as Chaitanya [phone]. CRISTHIAN noted contact [phone] on facesheet for Pts son Ramón (Chaitanya) is no longer valid. CRISTHIAN called Pts daughter Jaci to receive her brother Ramón Tillman) new contact. Jaci answered and provided Pts D.O.B for verification. CRISTHIAN noted Pt's living situation is with his son Ramón Tillman). CRISTHIAN called Ramón KennedyChaitanya) at [phone]. Ramón KennedyChaitanya) answered and confirmed Pts D.O.B and address for verification. CRISTHIAN asked open-ended questions regarding Pts fall incident and multiple rib fractures and Ramón KennedyChaitanya) stated Pt fell on March 02 and when Ramón KennedyChaitanya) attempted to pick him up from the ground he must have picked him up wrong and/or to fast. Ramón Tillman) also mentioned he failed to call 911. Pt presented in ED on 03/17/23 in regarding another chief compliant and was admitted into Tele. Ramón Tillman) mentioned patient has a walker and has recently been declining in his health and all ADLs. Ramón Tillman) stated Pt has no Hx of substance abuse, No Hx of psychiatric diagnosis, and no Hx of SI/HI, intent and/or plan. Ramón Tillman) mentioned Pt. has Hx of seizures. Pt's son Ramón Tillman) also stated Pt. is with [facility]. CRISTHIAN concluded conversation with Ramón Tillman) mentioning he spoke with Pts CM (did not disclose name) and there was discussion of Pt. going to Skilled Nurse Facility upon Discharge. CRISTHIAN called ERIK Campbell [phone] to discuss DC plans. ERIK Campbell further mentioned plans are to DC Pt. to Skilled Nurse Facility and placement is in process. ERIK Campbell mentioned both Pts Daughter Jaci and Son Ramón Tillman) are agreeable to Skilled Nurse Facility placement. Due to Pts fall incident causing multiple rib fractures occurring on 03/02/23 and Pts son aRmón Tillman) failing to call 911. This SW filed APS report for caregiver neglect and self-neglect. APS intake # [id number]. DC Plan: SW will continue to follow up, provide emotional support, and guidance as needed. CM and familys plan is for Pt. to be discharged to Skilled Nurse Facility.
[2023-03-18] MEDS: TRAZODONE 50 MG TABLET PO SCH (21:24)
[2023-03-19] VITALS (7 sets, daily range): BP systolic 117–123; BP diastolic 62–82; TEMP 97.6–98.4; O2SAT 91–96
[2023-03-19] MEDS: HYDROCODONE/APAP 5-325MG TABLET PO PRN ×3 (00:56→21:10)
[2023-03-19] MEDS: CEFEPIME HCL 1 G in IV DEXTROSE 5% 50 ML IV SCH ×3 (00:56→17:45)
[2023-03-19] MEDS: PANTOPRAZOLE SODIUM 40 MG TABLET.DR PO SCH (06:28)
[2023-03-19 07:11] LABS: MEAN CORPUSCULAR HEMOGLOBIN 27.6 uug (23.8-33.4); MEAN CORPUSCULAR VOLUME 84.7 fL (73.0-96.2); PLATELET COUNT (AUTO) 285 K/uL (152-348)
[2023-03-19 07:42] LABS: CARBON DIOXIDE 31 mmol/L (21-32); CHLORIDE 104 mmol/L (98-107); CREATININE 0.8 mg/dL (0.6-1.3); POTASSIUM 3.7 mmol/L (3.5-5.1); UREA NITROGEN, BLOOD 19 mg/dL (7-18)
--- NOTE | 2023-03-19 08:15 | NUR ---
Dr. Cesar in and notified of patient very sleepy and eating poorly, 25% Breakfast eaten. Procalcitonin ordered.
[2023-03-19] MEDS: CARVEDILOL 3.125 MG TABLET PO SCH ×2 (08:59→17:46)
[2023-03-19] MEDS ORDERED: FOLIC ACID 0.4 MG TABLET PO SCH (09:00)
[2023-03-19] MEDS: HYDROCORTISONE SOD SUCCINATE 100 MG/2 ML VIAL IV SCH ×2 (09:01→21:02)
[2023-03-19] MEDS: FOLIC ACID 1 MG TABLET PO SCH (09:01)
[2023-03-19] MEDS: FLUOXETINE HCL 20 MG CAPSULE PO SCH ×2 (09:01→17:45)
[2023-03-19] MEDS: VANCOMYCIN IV 1,250 MG in IV DEXTROSE 5% 250 ML IV SCH (14:00)
[2023-03-19] MEDS: TRAZODONE 50 MG TABLET PO SCH (21:03)
[2023-03-20] VITALS (7 sets, daily range): BP systolic 121–146; BP diastolic 54–97; TEMP 97.8–98.5; O2SAT 93–96
[2023-03-20] MEDS: CEFEPIME HCL 1 G in IV DEXTROSE 5% 50 ML IV SCH ×4 (00:51→16:58)
[2023-03-20] MEDS: PANTOPRAZOLE SODIUM 40 MG TABLET.DR PO SCH (06:45)
--- NOTE | 2023-03-20 06:56 | NUR ---
END OF SHIFT REPORT patient rested well in between care; incontinence care done; repositioned for comfort; safety maintained needs; aspiration precaution observed; continue to monitor; continue plan of care.
[2023-03-20] MEDS: CARVEDILOL 3.125 MG TABLET PO SCH ×2 (08:00→16:58)
[2023-03-20] MEDS: VANCOMYCIN IV 1,250 MG in IV DEXTROSE 5% 250 ML IV SCH (09:47)
[2023-03-20] MEDS: FLUOXETINE HCL 20 MG CAPSULE PO SCH ×2 (09:47→16:57)
[2023-03-20] MEDS: HYDROCORTISONE SOD SUCCINATE 100 MG/2 ML VIAL IV SCH ×2 (09:58→21:17)
[2023-03-20] MEDS: FOLIC ACID 1 MG TABLET PO SCH (09:59)
[2023-03-20] MEDS: ENSURE ENLIVE (VAN) 240 ML LIQUID PO SCH (17:15)
--- NOTE | 2023-03-20 18:30 | NUR ---
Pt received in bed states that some tablets fall in the floor explain pt that there is no medication on the floor. Pt was assisted with breakfast observed good appetite. HOB KEPT elevated to prevent aspiration. Pt is incontinent pericare and skin care provided. manager economic call about physician order to open a case at [facility]. SW file a case on 03/19/2023 according to caser shoe parts. Pt was able to swallow his medication and no mellissa n was reported Pt has a dry skin moisturizer applied. Pt continue under my care PM SHIFT.
[2023-03-20] MEDS: TRAZODONE 50 MG TABLET PO SCH (21:17)
[2023-03-21] MEDS: CEFEPIME HCL 1 G in IV DEXTROSE 5% 50 ML IV SCH ×3 (00:51→17:19)
[2023-03-21] MEDS: VANCOMYCIN IV 1,250 MG in IV DEXTROSE 5% 250 ML IV SCH ×2 (02:17→22:26)
[2023-03-21 04:11] VITALS: BP 131/85; TEMP 98.3; O2SAT 96
[2023-03-21] MEDS: PANTOPRAZOLE SODIUM 40 MG TABLET.DR PO SCH (06:24)
--- NOTE | 2023-03-21 06:52 | NUR ---
Pt incontinent during the night antibiotics were given to treat PNA Pt tolerates well no reaction. offered PO fluids and pt swallow well.Pt on oxygen 1 lpm sat 94% no SOB observed pending APS comes to evaluate pt.HOB kept elevated at all times Endorse care to incoming nurse
[2023-03-21] MEDS: HYDROCORTISONE SOD SUCCINATE 100 MG/2 ML VIAL IV SCH ×2 (08:47→21:46)
[2023-03-21] MEDS: FOLIC ACID 1 MG TABLET PO SCH (08:48)
[2023-03-21] MEDS: FLUOXETINE HCL 20 MG CAPSULE PO SCH ×2 (08:49→17:18)
[2023-03-21] MEDS: CARVEDILOL 3.125 MG TABLET PO SCH ×2 (08:49→17:20)
[2023-03-21] MEDS: ENSURE ENLIVE (VAN) 240 ML LIQUID PO SCH ×2 (08:51→17:19)
[2023-03-21 11:50] VITALS: BP 114/66; TEMP 97.9; O2SAT 95
--- NOTE | 2023-03-21 14:10 | NUR ---
NEW ORDERS NOTED TO DISCHARGE PATIENT TODAY AWAITING FOR THE PRACTICE MANAGEMENT CONSULTANT TO GIVE US THE FINAL DESTINATION.
--- NOTE | 2023-03-21 16:12 | NUR ---
CRISTHIAN APS Note: CRISTHIAN completed an APS per charge nurse and MD request. Pt appears with broken ribs and it is unclear how the injury occurred. APS . A copy was placed in the patients chart.
[2023-03-21 16:13] VITALS: BP 115/73; TEMP 97.5; O2SAT 95
--- NOTE | 2023-03-21 17:30 | NUR ---
DISCHARGE PLANNING CONTINUES PER THE CHROME WORKER SHE SPOKE WITH THE TWINE WINDER YANELY AND STATED THAT [facility] IS WAITING FOR THE HARD COPY OF THE APPROAVAL BEFORE ACCEPTING PATIENT.
[2023-03-21 17:31] VITALS: O2SAT 96
--- NOTE | 2023-03-21 18:34 | NUR ---
PER THE MANAGER HEMATOLOGY HOME THEATER EXPERIENCE EXPERT DISCHARGE IS POSTPONED TILL TOMORROW.
[2023-03-21 20:00] VITALS: BP 126/74; TEMP 98; O2SAT 96
[2023-03-21] MEDS: TRAZODONE 50 MG TABLET PO SCH (21:46)
[2023-03-21 22:03] VITALS: O2SAT 97
[2023-03-22] MEDS: CEFEPIME HCL 1 G in IV DEXTROSE 5% 50 ML IV SCH ×3 (00:13→16:43)
[2023-03-22 04:00] VITALS: BP 125/72; TEMP 98; O2SAT 97
[2023-03-22] MEDS: PANTOPRAZOLE SODIUM 40 MG TABLET.DR PO SCH (06:20)
[2023-03-22] MEDS: FLUOXETINE HCL 20 MG CAPSULE PO SCH ×2 (08:19→16:44)
[2023-03-22] MEDS: HYDROCORTISONE SOD SUCCINATE 100 MG/2 ML VIAL IV SCH ×2 (08:19→20:33)
[2023-03-22] MEDS: FOLIC ACID 1 MG TABLET PO SCH (08:19)
[2023-03-22] MEDS: ENSURE ENLIVE (VAN) 240 ML LIQUID PO SCH ×2 (08:20→16:44)
[2023-03-22] MEDS: CARVEDILOL 3.125 MG TABLET PO SCH ×2 (08:21→17:41)
--- NOTE | 2023-03-22 09:48 | NUR ---
DISCHARGE PLANNING TODAY TO [facility] PENDING AUTHORIZATION FROM PATIENTS INSURANCE.PATIENT WILL BE ON IV ANTIBIOTICS FOR 2 WEEKS AT THE [facility] PATIENT WILL NEED A MIDLINE NAVIN AWARE WITH ORDER CUSTOMER SERVICE COORDINATOR NOTIFIED WILL CALL THE MID LINE NURSE.
[2023-03-22 11:33] VITALS: BP 125/71; TEMP 98.4; O2SAT 94
--- NOTE | 2023-03-22 15:00 | NUR ---
PER THE COLLATING MACHINE OPERATOR PATIENTS FAMILY DOES NOT LIKE [facility] WANTS HIM INSTEAD TO GO TO [facility] SO THEY ARE WAITING FOR AUTHORIZATION AT THIS TIME
--- NOTE | 2023-03-22 15:55 | NUR ---
PATIENT HAS A GAUGE 22 RIGHT WRIST AND WILL BE DISCHARGED ON INTRAVENOUS ANTIBIOTICS NAVIN AWARE AND STATED TO INSERT A MIDLINE FOR THE COMPLETION OF THE ANTIBIOTICS IN THE RETIREMENTTEST LEAD APPLICATION TESTING AWARE AND STATED WILL CALL THE MIDLINE TEAM
[2023-03-22 16:00] VITALS: BP 155/80; TEMP 97.8; O2SAT 96
--- NOTE | 2023-03-22 17:41 | NUR ---
JESUSLOCK PULLED OUT BY PATIENT SO I WAS ABLE TO INSERT A GAUGE 20 TO HIS LEFT FOREARM AND WRAPPED WITH KIRLIX WILL CONTINUE TO OBSERVE.
[2023-03-22 20:00] VITALS: BP 135/69; TEMP 97.9; O2SAT 98
[2023-03-22] MEDS: TRAZODONE 50 MG TABLET PO SCH ×2 (20:33→21:00)
[2023-03-22] MEDS: VANCOMYCIN IV 1,250 MG in IV DEXTROSE 5% 250 ML IV SCH (20:33)
[2023-03-22 20:40] VITALS: O2SAT 95
--- NOTE | 2023-03-22 21:15 | NUR ---
Unable to administer Trazodone due to patient sleeping and refusing.
--- NOTE | 2023-03-22 23:13 | NUR ---
Received patient sleeping in bed. Alert and oriented x1-2. 1L Nasal Cannula, Iv site intact and patent. Safety measures in place. Will continue to monitor and continue plan of care. Addendum: 03/22/23 at 2318 by HIREN BONDS RN Wrong time charted. Correct time is 19:30, 03/22/2023.
[2023-03-23] MEDS: CEFEPIME HCL 1 G in IV DEXTROSE 5% 50 ML IV SCH ×3 (01:53→16:27)
[2023-03-23 04:00] VITALS: BP 109/66; TEMP 98.5; O2SAT 96
[2023-03-23] MEDS: PANTOPRAZOLE SODIUM 40 MG TABLET.DR PO SCH (06:06)
--- NOTE | 2023-03-23 07:45 | NUR ---
RECEIVED IN BED WITH EYES CLOSED OPENS EYES WHEN TOUCH AND RESPONDS BUT PROMPTLY FALLS BACK TO SLEEP HE IS ON O2 AT 1L/M BY NASAL CANULA WITH NO SOB AT THIS TIME. MADE COMFORTABLE WILL CONTINUE TO OBSERVE.
[2023-03-23] MEDS: FLUOXETINE HCL 20 MG CAPSULE PO SCH ×2 (08:29→16:05)
[2023-03-23] MEDS: FOLIC ACID 1 MG TABLET PO SCH (08:29)
[2023-03-23] MEDS: ENSURE ENLIVE (VAN) 240 ML LIQUID PO SCH ×2 (08:29→16:06)
[2023-03-23] MEDS: HYDROCORTISONE SOD SUCCINATE 100 MG/2 ML VIAL IV SCH ×2 (08:29→20:33)
[2023-03-23] MEDS: CARVEDILOL 3.125 MG TABLET PO SCH ×2 (08:30→17:38)
[2023-03-23 11:22] VITALS: BP 103/63; TEMP 97.9; O2SAT 94
[2023-03-23 14:20] VITALS: O2SAT 96
[2023-03-23 15:45] VITALS: BP 111/68; TEMP 97.8; O2SAT 95
[2023-03-23] MEDS ORDERED: FOLI1TAB94 PO (16:30)
[2023-03-23] MEDS ORDERED: ALBU2.5V7 NEB (16:30)
[2023-03-23] MEDS ORDERED: IPRA0.2S6 NEB (16:30)
[2023-03-23] MEDS ORDERED: Lactose-Free Food PO (16:30)
[2023-03-23] MEDS ORDERED: ACET325T53 PO (16:30)
[2023-03-23] MEDS: VANCOMYCIN IV 1,250 MG in IV DEXTROSE 5% 250 ML IV SCH (17:05)
[2023-03-23 20:00] VITALS: BP 124/72; TEMP 98; O2SAT 97
[2023-03-23] MEDS: TRAZODONE 50 MG TABLET PO SCH ×2 (20:38→20:43)
--- NOTE | 2023-03-23 20:44 | NUR ---
trazodone not given at this time and wasted , pt is sedated,
[2023-03-24] MEDS: TRAZODONE 50 MG TABLET PO SCH (00:04)
[2023-03-24] MEDS: CEFEPIME HCL 1 G in IV DEXTROSE 5% 50 ML IV SCH ×2 (02:15→08:52)
[2023-03-24] MEDS: TEMAZEPAM 15 MG CAPSULE PO PRN (02:18)
[2023-03-24 04:00] VITALS: BP 110/55; TEMP 97.5; O2SAT 95
[2023-03-24] MEDS: PANTOPRAZOLE SODIUM 40 MG TABLET.DR PO SCH (06:10)
--- NOTE | 2023-03-24 06:59 | NUR ---
Pt rested well in between care; no acute distress; incontinence care done; skin care applied; needs attended; continue to monitor; continue plan of care.
--- NOTE | 2023-03-24 08:00 | NUR ---
Awake, alert, oriented x 3. O2 at 1L/NC, not in distress. Repositioned comfortably for breakfast.
[2023-03-24] MEDS: HYDROCORTISONE SOD SUCCINATE 100 MG/2 ML VIAL IV SCH (08:52)
[2023-03-24] MEDS: FLUOXETINE HCL 20 MG CAPSULE PO SCH (08:53)
[2023-03-24] MEDS: FOLIC ACID 1 MG TABLET PO SCH (08:53)
[2023-03-24] MEDS: ENSURE ENLIVE (VAN) 240 ML LIQUID PO SCH (08:53)
[2023-03-24] MEDS: CARVEDILOL 3.125 MG TABLET PO SCH (09:01)
[2023-03-24 11:05] VITALS: BP 108/75; TEMP 97.8; O2SAT 92
--- NOTE | 2023-03-24 14:41 | NUR ---
With discharge order to SNF, accepted to [facility]. Report given to Christiana. Saline lock removed. Skin photos taken 03/23/23, patient refused photos taken at this time. Discharged per gurney/ambulance in fair condition, with O2 at 1-2L/NC, not in distress, afebrile.
[2023-03-24 15:25] VITALS: O2SAT 94
== END 2023-03-24 14:40 | DRG 177 ==
LOC: ER 23:37 → TELE3 03-17 04:30 → UNDOADMIN 03-17 04:30 → TRANSITION 03-17 04:30 → MEDSURG3 03-20 12:43
PROVIDERS: ATTEND Nurse Practitioner Acute Care
DX: J69.0 Pneumonitis due to inhalation of food and vomit (principal); J96.20 Acute and chronic respiratory failure, unspecified whether with hypoxia or hypercapnia; S22.43XA Multiple fractures of ribs, bilateral, initial encounter for closed fracture; S22.20XA Unspecified fracture of sternum, initial encounter for closed fracture; I45.2 Bifascicular block; M48.56XA Collapsed vertebra, not elsewhere classified, lumbar region, initial encounter for fracture; W06.XXXA Fall from bed, initial encounter; Y92.032 Bedroom in apartment as the place of occurrence of the external cause; Z20.822 Contact with and (suspected) exposure to COVID-19; F32.A Depression, unspecified; F41.9 Anxiety disorder, unspecified; G89.4 Chronic pain syndrome; Z79.891 Long term (current) use of opiate analgesic; I10 Essential (primary) hypertension; I25.10 Atherosclerotic heart disease of native coronary artery without angina pectoris; I71.21 Aneurysm of the ascending aorta, without rupture; J44.9 Chronic obstructive pulmonary disease, unspecified; Z66 Do not resuscitate; Z87.891 Personal history of nicotine dependence; Z99.81 Dependence on supplemental oxygen; Z86.79 Personal history of other diseases of the circulatory system
CPT/HCPCS: 36415; 36600; 71045; 71275; 82803; 83690; 83735; 84100; 84443; 84484; 85025; 87040; 93005; 93307; A4663; A6209; A6213; G0378; J0692; J1720; J1940; J1956; J2270; J7040; J7050; J7060; Q9967